=== PATIENT | female | born 2005 | race Caucasian/White ===

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

== ENCOUNTER 2024-01-07 09:34 | Outpatient (RCR) | payer OTHER, SELFPAY ==
[2024-01-07] MEDS: RHO(D) IMMUNE GLOBULIN 300 MCG/2 ML SYRINGE IM (09:48)
== END 2024-04-03 23:59 | disposition home or self-care (01) ==
LOC: ANHLAB 09:34
PROVIDERS: PCP Nurse Practitioner Family; Visit Provider Obstetrics & Gynecology
DX: O36.0190 Maternal care for anti-D [Rh] antibodies, unspecified trimester, not applicable or unspecified (principal); Z3A.00 Weeks of gestation of pregnancy not specified
CPT/HCPCS: 36415; 85461; 86850; 86900; 86901; 90384; 96372; J2790

== ENCOUNTER 2024-01-07 16:53 | Observation (INO) | payer OTHER, SELFPAY ==
[2024-01-07 17:11] VITALS: BMI 22.7
--- NOTE | 2024-01-07 17:12 | OBADM ---
This patient, Shahriar Hernandez, admitted to the OB room OB Post 117 for observation. Patient/family oriented to hospital policies and general routines including ID bracelet, bed and alarms, visiting hours, pain management, procedures, bathroom and other care routines, personal items, smoking policy, room service/diet, and visiting hours. Patient/Family are encouraged to report perceived risks to care and to ask questions if they do not understand what they are told or what they should do.
[2024-01-07 17:15] VITALS: BP 103/64; PULSE 99; RESP 18; TEMP 36.7
--- NOTE | 2024-01-07 17:40 | PC.NURSE ---
Dr. Wetzel notified of patient's arrival on unit, NST, vital signs, and abdominal pain. Orders received to give tylenol while waiting for patient to void to send urine sample.
[2024-01-07] MEDS: ACETAMINOPHEN 500 MG TABLET 1000 MG PO (17:47)
[2024-01-07 18:23] LABS: Appearance Urine Clear (Clear); Bacteria Urine 2+ /hpf; Bilirubin Urine Negative (Negative); Blood Urine 2+ (Negative); Color Urine Yellow (Yellow); Glucose Urine UA Negative (Negative); Ketones Urine Negative (Negative); Leukocyte Esterase Ur Negative LEU/UL (Negative); Nitrate Urine Negative (Negative); Non Pathogenic Casts 0-2; Protein Urine Negative (Negative); RBC Urine 21-50 /hpf (0-2); Squamous Epithelial Cell Urine Occasional /hpf (Few)
[2024-01-07 18:34] LABS: Add Urine Microscopic? YES
--- NOTE | 2024-01-10 18:16 | PM.OBTRLD ---
OB - Triage/Final Diagnosis Visit Information Reason for evaluation: other ( abdominal pain) Comments/Additional reasons for admission: I have assessed the risk for this patient, Shahriar Hernandez, and determined that she would benefit from observation care. Evaluation Laboratory results: Laboratory Tests 01/07/24 18:04 Urine Color Yellow Urine Appearance Clear Urine pH 7.0 Ur Specific [place] 1.010 Urine Protein Negative Urine Glucose (UA) Negative Urine Ketones Negative Ur Blood (Man) 2+ H Urine Nitrate Negative Urine Bilirubin Negative Urine Urobilinogen 1.0 Leukocyte Esterase Rfl Negative Urine RBC 21-50 H Urine WBC 6-10 H Ur Squamous Epith Cells Occasional Urine Bacteria 2+ H Urine Casts 0-2
== END 2024-01-07 19:39 | disposition home or self-care (01) ==
PROVIDERS: Admitting Provider Obstetrics & Gynecology; PCP Nurse Practitioner Family; Visit Provider Obstetrics & Gynecology Gynecology
DX: O26.899 Other specified pregnancy related conditions, unspecified trimester (principal); R10.9 Unspecified abdominal pain
CPT/HCPCS: 81001; 87086; 87088; 90384; 96372; A9270; G0378; G0379; J2790

== ENCOUNTER 2024-01-08 14:29 | Observation (INO) | payer OTHER, SELFPAY ==
[2024-01-08] VITALS (14 sets, daily range): BP systolic 85–121; BP diastolic 55–80; PULSE 108–124; TEMP 36.6; BMI 22.7
[2024-01-08] MEDS: LACTATED RINGERS 1,000 ML 125 ML IV CONT (15:35)
[2024-01-08] MEDS: ONDANSETRON INJ 4 MG/2 ML VIAL IV PUSH ×2 (15:35→21:44)
[2024-01-08 15:40] LABS: Basophils Absolute Auto 0.1 K/mm3 (0.0-0.1); Basophils Percent Auto 0.4 % (0.2-1.2); Hematocrit 29.8 % (37.0-47.0); Hemoglobin 10.2 g/dL (12.0-15.0); Immature Granulocyte Absolute 0.26 K/mm3 (0.00-0.031); Immature Granulocyte Percent A 1.2 % (0-0.5); Lymphocytes Absolute Auto 1.54 K/mm3 (0.9-3.2); Mean Corpuscular HGB Conc 34.2 g/dl (32-36); Mean Corpuscular Volume 93.4 fl (80-100); Mean Platelet Volume 8.6 fl (7.4-10.4); Monocytes Absolute Auto 1.5 K/mm3 (0.1-0.6); Monocytes Percent Auto 6.9 % (2.6-8.5); Neutrophils Absolute Auto 18.7 K/mm3 (1.3-6.7); Neutrophils Percent Auto 84.5 % (45.5-73.1); Platelet Count Result 290 k/mm3 (150-375); Red Blood Count 3.19 M/mm3 (4.2-5.4); Red Cell Distribution Width 12.1 % (11.5-14.5); White Blood Count 22.1 K/mm3 (4.5-10.0)
[2024-01-08 15:54] LABS: Alanine Aminotransferase 12 U/L (6-35); Alkaline Phosphatase 137 U/L (45-116); Anion Gap 11 mmol/L (4-12); Aspartate Amino Transferase 27 U/L (14-36); Bilirubin,Total 0.6 mg/dL (0.2-1.3); Blood Urea Nitrogen 6 mg/dL (8-21); Calcium 9.1 mg/dL (8.9-10.7); Carbon Dioxide 18 mmol/L (22-30); Chloride 107 mmol/L (98-107); Estimated CRCL calculation 100 ml/min; Estimated Glomerular Filt Rate > 60; Glucose 94 mg/dL (65-110); Potassium 3.5 mmol/L (3.4-5.0); Sodium 136 mmol/L (134-143)
--- NOTE | 2024-01-08 16:33 | PC.NURSE ---
1630--Reported labs and pt status to Dr. Wetzel. Rocephin order given.
[2024-01-08] MEDS: DEXTROSE 5%/LACTATED RINGERS 1,000 ML 100 ML IV CONT (20:30)
[2024-01-09 00:13] VITALS: BP 113/57; PULSE 115
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
--- NOTE | 2024-01-09 06:21 | PM.DS ---
DS: Admitting Diagnosis Discharge Date 01/09/2024 Admitting Diagnosis 2nd trimester dehydration. Urinary tract infection DS: Discharge Diagnosis Discharge Diagnosis (1) Dehydration: Code(s): E86.0 - Dehydration Status: Acute (2) Urinary tract infection: Code(s): N39.0 - Urinary tract infection, site not specified Status: Acute (3) Second trimester : Code(s): Z34.92 - Encounter for supervision of normal , unspecified, second trimester Status: Acute DS: Summary Hospital Course Reason for hospitalization: the patient was admitted on 01/08/2024 with complaints of urinary tract infection nausea vomiting. Hospital Course: He received a dose of Rocephin with white blood cell. She is weed smoker was asked to stop is to her nausea. The 624 she was able to eat was discharged on Zofranand Macrobid which she at. Time Spent with Patient Time attestation: Total time spent providing and/or coordinating discharge services: Exam Const: General: cooperative, healthy appearing and comfortable Nutritional Appearance: average body habitus Orientation/consciousness: oriented to person, oriented to place and oriented to time Resp: Effort & Inspection: normal respiratory effort Cardio: Rate: regular rate Rhythm: regular rhythm Heart sounds: S1 normal heart sound present and S2 normal heart sound present GI: Inspection: normal to inspection ( Soft gravid uterus) Auscultation: normal bowel sounds DS: Data Data Completed and Pending Labs on day of discharge: Labs from last 24 hours 01/08/24 15:21 WBC 22.1 H RBC 3.19 L Hgb 10.2 L Hct 29.8 L MCV 93.4 MCH 32.0 MCHC 34.2 RDW 12.1 Plt Count 290 MPV 8.6 Immature Gran % (Auto) 1.2 H Neut % (Auto) 84.5 H Lymph % (Auto) 7.0 L [place] % (Auto) 6.9 Eos % (Auto) 0.0 Baso % (Auto) 0.4 Lymph # (Auto) 1.54 [place] # (Auto) 1.5 H Eos # (Auto) 0.0 Baso # (Auto) 0.1 Abs Immat Gran (auto) 0.26 H Absolute Neuts (auto) 18.7 H Absolute Nucleated RBC 0.000 Nucleated RBC % 0.0 Sodium 136 Potassium 3.5 Chloride 107 Carbon Dioxide 18 L Anion Gap 11 BUN 6 L Creatinine 0.70 Estim Creat Clear Calc 100 Estimated GFR > 60 Glucose 94 Calcium 9.1 Total Bilirubin 0.6 AST 27 ALT 12 Alkaline Phosphatase 137 H Total Protein 7.0 Albumin 4.0 Discharge Plan Discharge Attending physician on discharge: Rafael Harper Discharging Clinician: Rafael Harper Patient Disposition: Home, Self-Care Activity: may shower and pelvic rest Diet: as tolerated Wound Care Instructions: follow printed instructions Patient Instructions: Antibiotic Form Stand Alone Forms: General Discharge Information Follow-up/Referrals: Rafael Harper MD [Physician] - Discharge Medications: New ondansetron 4 mg tablet,disintegrating 4 mg PO Q6H PRN (Reason: nausea and vomiting) Qty: 30 0RF Continued nitrofurantoin macrocrystal 100 mg Capsule 100 mg PO Q12H 3 Days Qty: 6 0RF Rx Instructions: must administer with a meal/food albuterol sulfate [ProAir HFA] 90 mcg/actuation HFA aerosol inhaler 1 puff INHALATION Q4H PRN Date of admission: 01/08/24 14:29 Primary Care Provider: Mitesh,Minnie Sanchez Admitting Provider: Rafael Harper Attending physician on admission: Rafael Harper Condition: Stable
[2024-01-09 06:45] VITALS: BP 105/64; PULSE 120
[2024-01-09 07:01] VITALS: BP 105/64; PULSE 120
== END 2024-01-09 07:05 | disposition home or self-care (01) ==
PROVIDERS: Admitting Provider Obstetrics & Gynecology; PCP Nurse Practitioner Family; Visit Provider Obstetrics & Gynecology
DX: O23.43 Unspecified infection of urinary tract in pregnancy, third trimester (principal); N39.0 Urinary tract infection, site not specified; O99.283 Endocrine, nutritional and metabolic diseases complicating pregnancy, third trimester; E86.0 Dehydration; Z79.51 Long term (current) use of inhaled steroids; Z3A.32 32 weeks gestation of pregnancy
CPT/HCPCS: 36415; 59025; 80053; 85025; 96374; 96375; 96376; G0378; G0379; J0696; J2405; J7120; J7121

== ENCOUNTER 2024-02-24 08:50 | Inpatient (IN) | payer OTHER, SELFPAY ==
[2024-02-24] VITALS (219 sets, daily range): BP systolic 62–142; BP diastolic 35–116; PULSE 25–207; TEMP 37–37.8; O2SAT 83–100; BMI 23.1
--- NOTE | 2024-02-24 08:50 | LDADM ---
This patient, Shahriar Hernandez, was admitted to Labor/Delivery/Recovery 105 on 02/24/24 at 08:50. Plans for labor, pain management and were discussed with patient. Patient/family oriented to hospital policies and general routines including ID bracelet, bed and alarms, visiting hours, pain management, procedures, bathroom and other care routines, personal items, smoking policy, room service/diet and guest tray routines, infant security routines, and visiting hours. Patient/Family are encouraged to report perceived risks to care and to ask questions if they do not understand what they are told or what they should do. See OBIX for further documentation.
[2024-02-24 10:42] LABS: Basophils Percent Auto 0.3 % (0.2-1.2); Eosinophils Absolute Auto 0.1 K/mm3 (0-0.3); Eosinophils Percent Auto 0.9 % (0-4.4); Hematocrit 31.8 % (37.0-47.0); Hemoglobin 10.7 g/dL (12.0-15.0); Immature Granulocyte Percent A 1.3 % (0-0.5); Lymphocytes Percent Auto 12.3 % (18.3-44.2); Mean Corpuscular HGB Conc 33.6 g/dl (32-36); Mean Corpuscular Hemoglobin 29.2 pg (26-34); Mean Corpuscular Volume 86.6 fl (80-100); Mean Platelet Volume 8.9 fl (7.4-10.4); Monocytes Absolute Auto 0.8 K/mm3 (0.1-0.6); Monocytes Percent Auto 4.9 % (2.6-8.5); Neutrophils Absolute Auto 12.4 K/mm3 (1.3-6.7); Neutrophils Percent Auto 80.3 % (45.5-73.1); Platelet Count Result 368 k/mm3 (150-375); Red Blood Count 3.67 M/mm3 (4.2-5.4); Red Cell Distribution Width 13.7 % (11.5-14.5); White Blood Count 15.4 K/mm3 (4.5-10.0)
--- NOTE | 2024-02-24 12:41 | PM.IMHP ---
H&P: HPI History of Present Illness Date/Time: 02/24/24 12:41 Chief Complaint: Rachel luna Narrative: 18 y/o G1 at 38 6/7 weeks who phoned this morning after a gush of clear fluid at 0700. I asked her to come in. RomPlus positive here. She is now feeling occasional contractions. GBS neg. Review of Systems Review of Systems: All systems reviewed & are unremarkable except as noted in HPI and below PMFSH Past Medical History Medical History Anxiety Asthma Eczema Surgical History Surgical History H/O wrist surgery Bilateral tendon removal Family History Family History Mother Endometriosis Father Diabetes mellitus Asthma Ayfjy-[id number]-qmghuwymwai deficiency High cholesterol Sibling Asthma Sibling No problems noted. Grandparent Heart attack Social History Social History Smoking status: Never smoker Alcohol intake: never Substance use: never Do You Feel Safe in your Home?: Yes Lack of Transportation: No Lack of Food: Never True Current Housing: I Have Housing Concerned About Future Housing: No Difficulty Paying Gas/Electric Bills: No Difficulty Paying for Meds: No Currently Unemployed: No Education: High School Diploma/GED Difficulty w/ Childcare or Family Care: No Living arrangements: with family Occupation/Education: occupation Gender identity (if verbalized by the patient): Female Sexual Orientation (if Verbalized by the Patient): Straight or Heterosexual Spiritual care concerns: No Meds Home Medications and Allergies Home Medications Medication Instructions Recorded Confirmed Type albuterol sulfate 90 mcg/actuation 1 puff inhalation Q4H PRN asthma 01/09/20 02/24/24 History aerosol inhaler (ProAir HFA) vits no.126-ferrous fum 1 tablet PO DAILY 02/24/24 02/24/24 History 28 mg iron-folic acid 800 mcg tablet (Classic ) Allergies Allergy/AdvReac Type Severity Reaction Status Date / Time latex Allergy Mild rash Verified 03/30/23 10:27 Sulfa (Sulfonamide Allergy Mild rash Verified 03/30/23 10:27 Antibiotics) Vital Signs Vital Signs - 24 hr 02/24/24 11:00 02/24/24 12:26 02/24/24 12:31 Pulse Oximetry 98 99 Oxygen Delivery Room Air 02/24/24 12:36 Pulse Oximetry 99 Oxygen Delivery Exam Const: Orientation/consciousness: patient oriented x3 Other: Well-developed, well-nourished female in no acute distress. Neck: Thyroid: thyroid normal Lymphatic: no lymphadenopathy noted (in neck, axilla or inguinal nodes) Resp: Effort & Inspection: normal respiratory effort Auscultation: clear to auscultation bilaterally Cardio: Rate: regular rate Rhythm: regular rhythm Heart sounds: S1 normal heart sound present and S2 normal heart sound present GI: Other: ABD: Soft, nontender, nondistended, gravid. NST reactive. Contrations irregular. No guarding or rebound tenderness. No hepatosplenomegaly. : General: Yes no CVA tenderness Other: Cervix 2/50/-2. Vertex. AROM of forebag. IUPC placed. Back/Spine/Pelvis: Back: no CVA tenderness Skin: General skin exam: normal color and no rashes or lesions noted Neuro: General: patient oriented x3 Extrem: Other: Extremities: nontender with no edema Psych: Mental Status: mental status grossly normal Affect: normal affect H&P: Results Labs Labs: Short CBC 02/24/24 Range/Units 10:36 WBC 15.4 H (4.5-10.0) K/mm3 Hgb 10.7 L (12.0-15.0) g/dL Hct 31.8 L (37.0-47.0) % Plt Count 368 (150-375) k/mm3 Assessment and Plan Assessment and plan (1) SROM (spontaneous rupture of membranes): Status: Acute Assessment and Plan: A: IUP at 38 6/7 weeks with SROM. P: Augm
[2024-02-24] MEDS: LACTATED RINGERS 1,000 ML 125 ML IV CONT ×3 (13:10→23:43)
--- NOTE | 2024-02-24 13:28 | WPDANESEPP ---
Anes - Eval Pre Procedure Procedure: Labor Epidural Date/Time: 02/24/24 13:28 Surgeon: Essie Preop Diagnosis: Labor Pain Pre Op Diagnosis: Leaking/Ruptured Patient Data Age: 18 Gender: F Height: 1.65 m Weight: 63 kg Last Vital Signs Pulse 84 02/24/24 13:15 BP 126/82 02/24/24 13:15 Pulse Ox 100 02/24/24 13:26 O2 Del Method Room Air 02/24/24 11:00 Allergies Allergy/AdvReac Type Severity Reaction Status Date / Time latex Allergy Mild rash Verified 03/30/23 10:27 Sulfa (Sulfonamide Allergy Mild rash Verified 03/30/23 10:27 Antibiotics) Home Medications Medication Instructions Recorded Confirmed Type albuterol sulfate 90 mcg/actuation 1 puff inhalation Q4H PRN asthma 01/09/20 02/24/24 History aerosol inhaler (ProAir HFA) vits no.126-ferrous fum 1 tablet PO DAILY 02/24/24 02/24/24 History 28 mg iron-folic acid 800 mcg tablet (Classic ) Laboratory Tests 02/24/24 10:36 WBC 15.4 H K/mm3 (4.5-10.0) RBC 3.67 L M/mm3 (4.2-5.4) Hgb 10.7 L g/dL (12.0-15.0) Hct 31.8 L % (37.0-47.0) MCV 86.6 fl (80-100) MCH 29.2 pg (26-34) MCHC 33.6 g/dl (32-36) RDW 13.7 % (11.5-14.5) Plt Count 368 k/mm3 (150-375) MPV 8.9 fl (7.4-10.4) Immature Gran % (Auto) 1.3 H % (0-0.5) Neut % (Auto) 80.3 H % (45.5-73.1) Lymph % (Auto) 12.3 L % (18.3-44.2) [place] % (Auto) 4.9 % (2.6-8.5) Eos % (Auto) 0.9 % (0-4.4) Baso % (Auto) 0.3 % (0.2-1.2) Lymph # (Auto) 1.90 K/mm3 (0.9-3.2) [place] # (Auto) 0.8 H K/mm3 (0.1-0.6) Eos # (Auto) 0.1 K/mm3 (0-0.3) Baso # (Auto) 0.0 K/mm3 (0.0-0.1) Abs Immat Gran (auto) 0.20 H K/mm3 (0.00-0.031) Absolute Neuts (auto) 12.4 H K/mm3 (1.3-6.7) Absolute Nucleated RBC 0.000 K/mm3 (0.0-0.012) Nucleated RBC % 0.0 % (0.0-0.2) RPR Pending HIV 1&2 Ab/P24 Ag 4thGn Pending Blood Type O Negative Antibody Screen Positive Antibody Identification Pending Antigen Identification Pending TONY, IgG Interpret Pending TONY, Poly Interpret Pending TONY, Complement Interp Pending : gestational age (PAT 03/03/24, ) Patient hx anesthesia problems: none Family hx anesthesia problems: none Results Review: All pre-operative results and documents have been reviewed as part of the pre-operative evaluation. [facility] Past Medical History Medical History Anxiety Asthma Eczema Surgical History Surgical History H/O wrist surgery Bilateral tendon removal Family History Family History Mother Endometriosis Father Diabetes mellitus Asthma Yzpas-[id number]-wicrggyorpa deficiency High cholesterol Sibling Asthma Sibling No problems noted. Grandparent Heart attack Social History Social History Smoking status: Never smoker Alcohol intake: never Substance use: never Do You Feel Safe in your Home?: Yes Lack of Transportation: No Lack of Food: Never True Current Housing: I Have Housing Concerned About Future Housing: No Difficulty Paying Gas/Electric Bills: No Difficulty Paying for Meds: No Currently Unemployed: No Education: High School Diploma/GED Difficulty w/ Childcare or Family Care: No Living arrangements: with family Occupation/Education: occupation Gender identity (if verbalized by the patient): Female Sexual Orientation (if Verbalized by the Patient): Straight or Heterosexual Spiritual care concerns: No Exam Day of Procedure 02/24/24 13:28
[2024-02-24 13:36] LABS: HIV 1/2 Ab P24 Ag Result Negative (Negative)
[2024-02-24] MEDS: OXYTOCIN 30 UNITS/NS 500 ML 30 UNITS/500 ML BAG IV CONT (14:55)
[2024-02-24 15:37] LABS: Rapid Plasma Reagin Non-Reactive (NonReactive)
--- NOTE | 2024-02-24 17:14 | PM.OBPNLAB ---
Pain Control Date/time seen: 02/24/24 17:14 Comments: Comfortable with epidural. Pelvic Exam Dilation (cm): 3 Effacement (%): 90 station: -2 Contractions Contraction frequency: 2 Contraction pattern: Irregular Status status: Category l Assessment and Plan Pitocin rate (mU/min): 6 Comments: Continue labor augmentation. Dr. Wetzel is covering for the weekend. I have communicated with her and she is aware.
[2024-02-25] VITALS (99 sets, daily range): BP systolic 101–158; BP diastolic 53–103; PULSE 30–184; RESP 16–22; TEMP 36.6–38.8; O2SAT 72–100
[2024-02-25] MEDS: METHYLERGONOVINE MALEATE 0.2 MG/ML VIAL IM (00:45)
[2024-02-25] MEDS: miSOPROStol 200 MCG TABLET 1000 MCG (00:54)
--- NOTE | 2024-02-25 01:01 | PM.OBPRVD ---
OB - Vaginal Delivery Note Procedure Delivery date: 02/25/24 Induction method: None Delivery augmentation: Pitocin Delivery monitor: External FHT and Internal Uterine Route of delivery: Episiotomy description: None Laceration Description: Perineal - 3rd Degree Delivery repair: vicryl (0 vicryl for sphincter and 3-0 for vaginal laceration) Specimen: No Quantitative Blood Loss (ml): 800 Anesthesia type: Local Disposition: Floor Complications: Other complications (pp hemorrhage secondary to atony) Narrative: Uterus explored with no products noted. Massage and Pitocin throughout. Given Methergine with some response and cytotec resolved atony. Baby Date of : 02/25/24 Gestational Age by Date: 38 Infant gender: Female presentation: vertex position: Left Occiput Anterior Placenta delivery description: Spontaneous Cord Vessel Description: 3 Vessels, Nuchal Cord (reduced) and Delayed Cord Clamping score one minute: 8 score five minutes: 9
[2024-02-25] MEDS: OXYTOCIN 30 UNITS/NS 500 ML 30 UNITS/500 ML BAG 125 UNITS IV CONT (01:04)
--- NOTE | 2024-02-25 01:04 | PM.OBDSVD ---
DS: Admitting Diagnosis Discharge Date 02/27/2024 <Rafael Morales MD - Last Filed: 02/27/24 06:34> Admitting Diagnosis IUP 38 wks with SROM <Cate Wetzel MD - Last Filed: 02/27/24 09:30> DS: Discharge Diagnosis Discharge Diagnosis (1) (normal spontaneous vaginal delivery): Code(s): O80 - Encounter for full-term uncomplicated delivery <Cate Wetzel MD - Last Filed: 02/27/24 09:30> Status: Acute <Cate Wetzel MD - Last Filed: 02/27/24 09:30> (2) hemorrhage: Code(s): O72.1 - Other immediate hemorrhage <Cate Wetzel MD - Last Filed: 02/27/24 09:30> Status: Acute <Cate Wetzel MD - Last Filed: 02/27/24 09:30> (3) Third degree laceration of perineum during delivery, : Code(s): O70.20 - Third degree perineal laceration during delivery, unspecified <Cate Wetzel MD - Last Filed: 02/27/24 09:30> Status: Acute <Cate Wetzel MD - Last Filed: 02/27/24 09:30> OB - DS: Summary Hospital Course Hospital Course: Patient underwent spontaneous vaginal delivery the 3rd degree tear as well as hemorrhage. She received 2 doses of blood. Her hemoglobin was stable upon discharge. She remained afebrile. She was up, voiding without difficulty, eating where diet, ambulating, generally without complaints. <Cate Wetzel MD - Last Filed: 02/27/24 09:30> OB Procedures : None <Rafael Morales MD - Last Filed: 02/27/24 06:34> OB Procedures Intrapartum: Spontaneous Vag Delivery <Rafael Morales MD - Last Filed: 02/27/24 06:34> OB Procedures: : Transfusion <Rafael Morales MD - Last Filed: 02/27/24 06:34> Peripartum Data Laceration Description: Perineal - 3rd Degree <Cate Wetzel MD - Last Filed: 02/27/24 09:30> Episiotomy description: None <Cate Wetzel MD - Last Filed: 02/27/24 09:30> Time Spent with Patient Time attestation: Total time spent providing and/or coordinating discharge services: <Cate Wetzel MD - Last Filed: 02/27/24 09:30> DS: Data Data Completed and Pending Labs on day of discharge: Labs from last 24 hours 02/24/24 10:36 WBC 15.4 H RBC 3.67 L Hgb 10.7 L Hct 31.8 L MCV 86.6 MCH 29.2 MCHC 33.6 RDW 13.7 Plt Count 368 MPV 8.9 Immature Gran % (Auto) 1.3 H Neut % (Auto) 80.3 H Lymph % (Auto) 12.3 L [place] % (Auto) 4.9 Eos % (Auto) 0.9 Baso % (Auto) 0.3 Lymph # (Auto) 1.90 [place] # (Auto) 0.8 H Eos # (Auto) 0.1 Baso # (Auto) 0.0 Abs Immat Gran (auto) 0.20 H Absolute Neuts (auto) 12.4 H Absolute Nucleated RBC 0.000 Nucleated RBC % 0.0 RPR Non-reactive HIV 1&2 Ab/P24 Ag 4thGn Negative Blood Type O Negative Antibody Screen Positive Antibody Identification Passive Due to RH Imm Glob Antigen Identification Cancelled TONY, IgG Interpret Neg TONY, Poly Interpret Not Performed TONY, Complement Interp Negative <Cate Wetzel MD - Last Filed: 02/27/24 09:30> Discharge Plan Discharge Attending physician on discharge: Rafael Harper <Cate Wetzel MD - Last Filed: 02/27/24 09:30> Rafael Harper <Rafael Morales MD - Last Filed: 02/27/24 06:34> Discharging Clinician: Cate Wetzel <Cate Wetzel MD - Last Filed: 02/27/24 09:30> Cate Wetzel <Rafael Morales MD - Last Filed: 02/27/24 06:34> Anticipated Discharge Date/Time: 02/26/24 17:00 <Cate Wetzel MD - Last Filed: 02/27/24 09:30> Patient Disposition: Home, Self-Care <Cate Wetzel MD - Last Filed: 02/27/24 09:30> Activity: may shower and pelvic rest <Cate Wetzel MD - Last Filed: 02/27/24 09:30> may shower and pelvic rest <Rafael Morales MD - Last Filed: 02/27/24 06:34
[2024-02-25] MEDS: ALBUTEROL SULFATE NEB 2.5 MG/3 ML INH 1.25 MG INHALATION (01:55)
[2024-02-25 02:05] LABS: Hematocrit 24.6 % (37.0-47.0); Hemoglobin 8.2 g/dL (12.0-15.0)
[2024-02-25] MEDS: ONDANSETRON INJ 4 MG/2 ML VIAL IV PUSH (03:15)
[2024-02-25] MEDS: IBUPROFEN 600 MG TABLET PO ×3 (03:54→23:12)
[2024-02-25] MEDS: ACETAMINOPHEN 500 MG TABLET 1000 MG PO (03:55)
[2024-02-25] MEDS: WITCH HAZEL 40 PADS 1 PAD TOPICAL (05:13)
[2024-02-25] MEDS: BENZOCAINE 20% AER SPR (*SP) 56 GM CAN 1 SPRAY TOPICAL (05:13)
--- NOTE | 2024-02-25 05:36 | OBPPTRN ---
Patient transferred to post room #286 via wheelchair @ [phone]. Support person present. Oriented to unit, room, information board, rooming in, admission packet and security measures. Patient verbalizes understanding.
--- NOTE | 2024-02-25 09:13 | P.PNOB_ITS ---
OB - PN: Subj Subjective Date/time seen: 02/25/24 09:13 Interval history: Feeling much better after 1st unit of blood. Patient comments: pain well controlled OB - PN: Obj Data Labs 02/25/24 01:58 Labs: Laboratory Results - last 24 hr 02/24/24 02/24/24 02/25/24 10:36 10:36 01:58 WBC 15.4 H RBC 3.67 L Hgb 10.7 L 8.2 L Hct 31.8 L 24.6 L MCV 86.6 MCH 29.2 MCHC 33.6 RDW 13.7 Plt Count 368 MPV 8.9 Immature Gran % (Auto) 1.3 H Neut % (Auto) 80.3 H Lymph % (Auto) 12.3 L [place] % (Auto) 4.9 Eos % (Auto) 0.9 Baso % (Auto) 0.3 Lymph # (Auto) 1.90 [place] # (Auto) 0.8 H Eos # (Auto) 0.1 Baso # (Auto) 0.0 Abs Immat Gran (auto) 0.20 H Absolute Neuts (auto) 12.4 H Absolute Nucleated RBC 0.000 Nucleated RBC % 0.0 RPR Non-reactive HIV 1&2 Ab/P24 Ag 4thGn Negative Blood Type O Negative Antibody Screen Positive Antibody Identification Passive Due to RH Imm Glob Antigen Identification Cancelled TONY, IgG Interpret Neg TONY, Poly Interpret Not Performed TONY, Complement Interp Negative Crossmatch See Detail See Detail OB - PN A/P Assessment and Plan (1) hemorrhage: Code(s): O72.1 - Other immediate hemorrhage Status: Acute Assessment and Plan: vss bleeding stable second unit blood in progress h/h in am Plan day: 0 Time Spent With Patient Time: Total time spent is greater than 50% in coordination of care (as documented) at patient's floor/unit and/or counseling patient: Exam : Bimanual exam- vagina & uterus: other (Uterus firm, nt @U)
[2024-02-25] MEDS: POLYSACCHARIDE IRON COMPLEX 150 MG CAPSULE PO ×2 (09:47→17:10)
[2024-02-25] MEDS: DOCUSATE SODIUM 100 MG CAPSULE PO ×2 (09:47→17:10)
[2024-02-25] MEDS: MULTIVIT/MIN/PREN/FOL AC/IRON TABLET 1 TAB PO (09:47)
--- NOTE | 2024-02-25 09:52 | WPDANLDPN2 ---
Anes-Prog Note L&D Date/Time: 02/25/24 09:52 Comfortable throughout: labor and delivery Neuraxial method: epidural Epidural/Spinal procedure site: clean & non-tender Neuro status: Neuro function grossly intact. Cardiovascular status: normal Respiratory status: normal Airway patency: baseline Mental status: baseline Post-Op hydration status: normal Vital Signs: Last Vital Signs Temp 37.2 C 02/25/24 09:44 Pulse 95 02/25/24 09:44 Resp 16 02/25/24 09:44 BP 106/55 L 02/25/24 09:44 Pulse Ox 97 02/25/24 09:44 O2 Del Method Room Air 02/24/24 11:00 Pain score (VAS): 0 I/O: Intake & Output 02/24/24 02/25/24 02/25/24 23:59 07:59 15:59 Intake Total 1000 322 0 Output Total 920 Balance 1000 -598 0 Post-procedural complaints: none Patient feedback: Patient satisfied with anesthetic care.
--- NOTE | 2024-02-25 10:20 | PC.NURSE ---
Mother was attempting to put to breast when RN entered. was eager and opening wide but did not have a good latch. We repositioned a little in cradle hold on the right breast. Mother found a comfortable hold on her breast and we latched baby when she opened wide. Baby suckled well for a few minutes, and then unlatched and mother was able to relatch her independently. Baby is vigorous with brief pauses and intermittent swallows. Mother denies nipple discomfort. Encouraged mother to call for further assistance as needed throughout the day and to feed again in 2-3 hours or when she sees feeding cues. Mother agrees. Reported to primary RN.
--- NOTE | 2024-02-25 16:05 | PC.NURSE ---
Called to room to assist with . is sleepy at breast. She is able to be roused when you pull her away from mom but when she gets to the breast and latches, she will suck once or twice and then hold the nipple in her mouth. We tried several times to unlatch and start over, but baby would do the same thing. It has been four hours since the last feed so mother is instructed to place baby back under the bili lights and try again if she sees any feeding cues, or in half an hour. Mother will call for assistance as needed. Reported to Primary RN.
[2024-02-25] MEDS: ACETAMINOPHEN 325 MG TABLET 650 MG PO (17:10)
[2024-02-26] VITALS: BP 105/61; PULSE 98; RESP 16; RESP 18; TEMP 37.1; O2SAT 100
[2024-02-26] MEDS: ACETAMINOPHEN 325 MG TABLET 650 MG PO ×4 (01:00→20:44)
[2024-02-26 05:43] LABS: Hematocrit 25.6 % (37.0-47.0); Hemoglobin 8.4 g/dL (12.0-15.0)
[2024-02-26 07:10] VITALS: BP 100/62; PULSE 91; RESP 16; TEMP 36.4; O2SAT 99
[2024-02-26] MEDS: POLYSACCHARIDE IRON COMPLEX 150 MG CAPSULE PO ×2 (08:12→18:38)
[2024-02-26] MEDS: DOCUSATE SODIUM 100 MG CAPSULE PO ×2 (08:12→18:38)
[2024-02-26] MEDS: MULTIVIT/MIN/PREN/FOL AC/IRON TABLET 1 TAB PO (08:12)
--- NOTE | 2024-02-26 09:23 | PM.OBPNVD ---
OB - PN: Subj Subjective Date/time seen: 02/26/24 09:23 Interval history: Patient comments: no complaints and pain well controlled baby status: doing well and nursing well OB - PN: Obj Data Labs 02/26/24 05:13 Labs: Laboratory Results - last 24 hr 02/24/24 02/26/24 10:36 05:13 Hgb 8.4 L Hct 25.6 L Blood Type O Negative Antibody Screen Positive Antibody Identification TNP Antigen Identification TNP TONY, IgG Interpret TNP TONY, Poly Interpret TNP TONY, Complement Interp TNP Baby's Blood Type O pos Baby's TONY Positive Crossmatch See Detail OB - PN A/P Plan day: 1 Plan: routine care and other Comments: afebrile x 24 hours will observe until ppd 2 feeling better post 2 units PRBC Time Spent With Patient Time: Total time spent is greater than 50% in coordination of care (as documented) at patient's floor/unit and/or counseling patient: Exam : Bimanual exam- vagina & uterus: other (Uterus firm, nt @U)
--- NOTE | 2024-02-26 10:20 | PC.NURSE ---
Breast pump provided due to maternal request. Instructions given on cleaning, care, usage, that there should be no pain, pumping schedule for milk production, collection, and storage of human milk. Patient was assessed for correct placement, flange size, to pump for comfort and nipple stretching/stimulation for adequate milk production every 3 hours (8 times in 24 hours) 1-2 times at night.
--- NOTE | 2024-02-26 10:38 | WPDANLDPN2 ---
Anes-Prog Note L&D Date/Time: 02/26/24 10:38 Comfortable throughout: labor and delivery Neuraxial method: epidural Epidural/Spinal procedure site: tender Neuro status: Neuro function grossly intact. Cardiovascular status: normal Respiratory status: normal Airway patency: baseline Mental status: baseline Post-Op hydration status: normal Vital Signs: Last Vital Signs Temp 37.1 C 02/26/24 00:00 Pulse 98 02/26/24 00:00 Resp 16 02/26/24 00:00 BP 105/61 02/26/24 00:00 Pulse Ox 100 02/26/24 00:00 O2 Del Method Room Air 02/26/24 00:00 Pain score (VAS): 4/10 I/O: Intake & Output 02/25/24 02/26/24 02/26/24 23:59 07:59 15:59 Intake Total 140 Balance 140 Post-procedural complaints: none Patient feedback: Patient satisfied with anesthetic care.
[2024-02-26] MEDS: RHO(D) IMMUNE GLOBULIN 300 MCG/2 ML SYRINGE IM (13:23)
[2024-02-26 18:59] VITALS: BP 119/78; PULSE 97; RESP 20; TEMP 36.6; O2SAT 100
--- NOTE | 2024-02-27 06:34 | PM.OBPNVD ---
OB - PN: Subj Subjective Date/time seen: 02/27/24 06:34 Interval history: Patient comments: no complaints and pain well controlled baby status: doing well and nursing well OB - PN: Obj Data Labs 02/26/24 05:13 Labs: Laboratory Results - last 24 hr 02/26/24 05:13 Blood Type O Negative Antibody Screen Positive Antibody Identification TNP Antigen Identification TNP TONY, IgG Interpret TNP TONY, Poly Interpret TNP TONY, Complement Interp TNP Screen Negative Baby's Blood Type O pos Baby's TONY Positive Doses of RhIg Required 1 OB - PN A/P Plan day: 2 Plan: routine care, discharge home and follow up 6 weeks Time Spent With Patient Time: Total time spent is greater than 50% in coordination of care (as documented) at patient's floor/unit and/or counseling patient: Time with patient: less than 15 minutes Exam Const: General: cooperative, healthy appearing and comfortable Nutritional Appearance: average body habitus Orientation/consciousness: oriented to person, oriented to place and oriented to time Resp: Effort & Inspection: normal respiratory effort Cardio: Rate: regular rate Rhythm: regular rhythm Heart sounds: S1 normal heart sound present and S2 normal heart sound present GI: Inspection: normal to inspection
[2024-02-27 08:05] VITALS: BP 127/82; PULSE 87; RESP 16; TEMP 37.4; O2SAT 100
[2024-02-27] MEDS: MULTIVIT/MIN/PREN/FOL AC/IRON TABLET 1 TAB PO (09:28)
[2024-02-27] MEDS: DOCUSATE SODIUM 100 MG CAPSULE PO (09:28)
[2024-02-27] MEDS: ACETAMINOPHEN 325 MG TABLET 650 MG PO (09:30)
[2024-02-27] MEDS: POLYSACCHARIDE IRON COMPLEX 150 MG CAPSULE PO (09:30)
--- NOTE | 2024-02-27 10:20 | PC.NURSE ---
Consulted with mother concerning needs and she shared her ability to independently latch infant optimally without pain. Mother says she is pumping and supplementing with breastmilk and formula. She still puts baby to breast sometimes. She has a pump at home. Advised continuing with this feeding plan until she sees her last remodeler repairer. Mother is feeding appropriately for growth of and understands stimulating infant to eat if needed. Infant has had appropriate feedings in the last 24 hours meets the outcomes for weight, output, blood sugar and jaundice at this time. Reinforced understanding of milk production, transition of milk, signs of adequate intake, transition of stool, prevention/relief of engorgement, community resources, and when to call a provider using the resource of the feeding sheet along with the mom and baby guide. Mother voiced understanding of the information shared, is confident to continue effectively her at home, when to call for assistance, denies any additional assistance or education at this time. Reported to the Primary RN.
--- NOTE | 2024-02-27 13:11 | PCCCNOTE ---
Met with pt. and father of baby/gonzalo Ty. This is their first child. They live together at home. They have family support including family and friends. Pt. reports she has all necessary supplies at home including a breast pump, crib, clothing, etc. Offered resources to pt. and she reports she did not need but will take for information only. Offered basket and they passed. Pt. will discharge home today. Denies any other needs.
[2024-02-28 14:26] VITALS: BP 120/82; PULSE 80; RESP 20; TEMP 37.2; O2SAT 100
== END 2024-02-27 11:02 | disposition home or self-care (01) | DRG 542 ==
LOC: ANHLDR 02-25 01:06 → ANHOB2 02-25 05:57
PROVIDERS: Obstetrics & Gynecology Gynecology; Admitting Provider Obstetrics & Gynecology; PCP Nurse Practitioner Family; Visit Provider Obstetrics & Gynecology
DX: O69.81X0 Labor and delivery complicated by cord around neck, without compression, not applicable or unspecified (principal); Z37.0 Single live birth; Z3A.39 39 weeks gestation of pregnancy; O70.20 Third degree perineal laceration during delivery, unspecified; O72.1 Other immediate postpartum hemorrhage
CPT/HCPCS: 36415; 36430; 85014; 85018; 85025; 85461; 86592; 86703; 86850; 86880; 86900; 86901; 86902; 86920; 90384; 94640; A9270; G0432; J2210; J2405; J2590; J2790; J2795; J7120; P9016

== ENCOUNTER 2024-12-19 10:30 | Outpatient (RCR) | payer OTHER, SELFPAY ==
[2024-12-19] MEDS: RHO(D) IMMUNE GLOBULIN 300 MCG/2 ML SYRINGE IM (14:00)
== END 2025-03-19 23:59 | disposition home or self-care (01) ==
LOC: ANHLAB 10:30
PROVIDERS: Visit Provider Obstetrics & Gynecology
DX: Z29.13 Encounter for prophylactic Rho(D) immune globulin (principal); O36.0190 Maternal care for anti-D [Rh] antibodies, unspecified trimester, not applicable or unspecified; Z3A.00 Weeks of gestation of pregnancy not specified
CPT/HCPCS: 36415; 85461; 86850; 86900; 86901; 90384; 96372; J2790

== ENCOUNTER 2025-01-30 11:36 | Observation (INO) | payer OTHER, SELFPAY ==
[2025-01-30] VITALS (100 sets, daily range): BP systolic 103–116; BP diastolic 53–66; PULSE 25–162; RESP 16; TEMP 37–37.4; O2SAT 91–100; BMI 24.0
--- OUTSIDE RECORDS SUMMARY | 2025-01-30 12:04 | XMS_ITS | Clinical Summary ---
Author Organization [facility] Address [address] [place] [address] Phone Care Team Providers Care Regrinder Operator Name Role Phone Minnie Sagastume BRANDIE OROPEZA Primary Care Provider [phone] Allergies No known active allergies Medications ketorolac (TORADOL) 10 MG Tablet Take 1 Tablet by mouth every 6 hours as needed for Moderate or more severe pain. 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 User may not have seen previous data. Pulse 84 02/22/2023 11:33 PM CDT Temperature 36.4 C (97.6 F) 02/22/2023 11:33 PM CDT Respiratory Rate 16 02/22/2023 11:3 3 PM CDT Oxygen Saturation 99% 02/22/2023 11: 30 PM CDT Inhaled Oxygen Concentration - - Weight 56.7 kg (125 lb) 02/22/2023 11:3 3 PM CDT Height 162.6 cm (5' 4) 02/22/2023 11:3 3 PM CDT Body Mass Index 21.46 02/22/2023 11:33 PM CDT Plan of Treatment Health Maintenance Due Date Last Done Comments Hepatitis C Virus (HCV) Screening 2004 Meningococcal B Immunization (1 of 2 - Standard) 2020 SARS-COV-2 Immunization ( - 2023- season) 2024 Influenza Immunization (#1) 2025 03/0 03/2022, 05/08/2020, 05/19/2018, Additional history exists Respiratory Syncytial Virus (RSV) Immunization (Adult) (1 - 1-dose 75+ series) 2079 Hepatitis B Immunization Completed 005, 2004, 2004, Additional history exists Pneumococcal Immunization Combined Aged Out 2005, 2004, 2004, Additional history exists No longer eligible based on patient's age to complete this topic Hepatitis A Immunization Discontinued 007, 03/31/2007, 2006, Additional history exists Varicella Immunization Discontinued 11/17/2007, 2005 Measles Mumps Rubella (MMR) Immunization Discontinued 05/30/2009, 2005 Polio (IPV) Immunization Discontinued 009, 2004, 2004, Additional history exists DTaP/Tdap/Td Immunization Discontinued 2015, 05/30/2009, 10/15/2005, Additional history exists TdaP Immunization Completed 12/11/2015 Human Papillomavirus (HPV) Immunization Completed 06/22/2016, 02/20/2016, 12/11/2015 Meningococcal Immunization (ACWY) Completed 01/01/2021, 12/11/2015 Rotavirus Immunization Aged Out No lo nger eligible based on patient's age to complete this topic Insurance MEDICAID [place] Care Teams Regrinder Operator Relationship Specialty Start Date End Date Sagastume, SANDIP Hartman, BRANDIE [address] [place] [address] PCP - General Family Medicine 02/22/23
--- NOTE | 2025-01-30 12:19 | OBADM ---
This patient, Shahriar Hernandez, admitted to the OB room 116 for observation. Patient/family oriented to hospital policies and general routines including ID bracelet, bed and alarms, visiting hours, pain management, procedures, bathroom and other care routines, personal items, smoking policy, room service/diet, and visiting hours. Patient/Family are encouraged to report perceived risks to care and to ask questions if they do not understand what they are told or what they should do.
[2025-01-30 13:23] LABS: OBXCEM ROM Plus Negative (Negative)
[2025-01-30 13:33] LABS: Add Urine Microscopic? NO; Appearance Urine Clear (Clear); Glucose Urine UA Negative (Negative); Leukocyte Esterase Ur Negative LEU/UL (Negative); Nitrate Urine Negative (Negative); Specific Grav Ur 1.009 (1.001-1.035)
[2025-01-30] MEDS: TERBUTALINE SULFATE 1 MG/ML VIAL 0.25 MG SUB-Q (14:47)
[2025-01-30] MEDS: ACETAMINOPHEN 500 MG TABLET 1000 MG PO (17:04)
[2025-01-30 19:00] LABS: Hematocrit 28.6 % (37.0-47.0); Hemoglobin 9.0 g/dL (12.0-15.0); Immature Granulocyte Percent A 1.9 % (0-0.5); Lymphocytes Absolute Auto 1.97 K/mm3 (0.9-3.2); Mean Corpuscular HGB Conc 31.5 g/dl (32-36); Mean Corpuscular Hemoglobin 27.4 pg (26-34); Mean Corpuscular Volume 87.2 fl (80-100); Nucleated Red Blood Cells Absolute Auto 0.000 K/mm3 (0.0-0.012); Nucleated Red Blood Cells Perc 0.0 % (0.0-0.2); Platelet Count Result 274 k/mm3 (150-375); Red Blood Count 3.28 M/mm3 (4.2-5.4); White Blood Count 15.5 K/mm3 (4.5-10.0)
[2025-01-30] MEDS: BETAMETHASONE SOD PHOS/ACETATE 30 MG/5 ML VIAL 12 MG IM (19:04)
--- NOTE | 2025-01-30 19:15 | PC.NURSE ---
184- phoned in for patient update, RN notified MD that patient's uterus is very irritable still, and that this RN sat at bedside for 5 minutes and palpated the patient's abdomen and noted no contractions per palpation, but a lot of movement during that time. RN also notified MD of FHT tracing that is reactive with moderate variability with accelerations. MD gave orders to just monitor with toco and to give the patient another 10mg of Procardia. MD also gave orders to give the patient steriods, draw a CBC to verify blood counts due to patient's medical history of anemia, and then to d/c the patient with procardia 10mg Q4 hours as needed.
--- NOTE | 2025-01-31 07:29 | PM.OBTRLD ---
OB - Triage/Final Diagnosis Visit Information Date of evaluation: 01/30/25 Reason for evaluation: threatened labor Comments/Additional reasons for admission: I have assessed the risk for this patient, Shahriar Hernandez, and determined that she would benefit from observation care. Evaluation Laboratory results: Laboratory Tests 01/30/25 01/30/25 01/30/25 12:23 13:26 18:55 WBC 15.5 H RBC 3.28 L Hgb 9.0 L Hct 28.6 L MCV 87.2 MCH 27.4 MCHC 31.5 L RDW 16.2 H Plt Count 274 MPV 8.6 Immature Gran % (Auto) 1.9 H Neut % (Auto) 77.8 H Lymph % (Auto) 12.7 L [place] % (Auto) 7.0 Eos % (Auto) 0.3 Baso % (Auto) 0.3 Lymph # (Auto) 1.97 [place] # (Auto) 1.1 H Eos # (Auto) 0.1 Baso # (Auto) 0.0 Abs Immat Gran (auto) 0.29 H Absolute Neuts (auto) 12.1 H Absolute Nucleated RBC 0.000 Nucleated RBC % 0.0 Urine Color Yellow Urine Appearance Clear Urine pH 6.5 Ur Specific [place] 1.009 Urine Protein Negative Urine Glucose (UA) Negative Urine Ketones Negative Ur Blood (Man) Negative Urine Nitrate Negative Urine Bilirubin Negative Urine Urobilinogen 0.2 Leukocyte Esterase Rfl Negative Membranes Rupture Rom plus negative Vital signs: Vital Signs - 24 hr 01/30/25 12:05 01/30/25 12:08 01/30/25 12:13 Temperature Pulse Rate 108 H Respiratory Rate Blood Pressure 111/61 Pulse Oximetry 98 98 Oxygen Delivery 01/30/25 12:14 01/30/25 12:15 01/30/25 12:18 Temperature Pulse Rate 101 H Respiratory Rate Blood Pressure 112/65 Pulse Oximetry 99 Oxygen Delivery Room Air 01/30/25 12:23 01/30/25 12:28 01/30/25 12:30 Temperature Pulse Rate 104 H Respiratory Rate Blood Pressure 108/62 Pulse Oximetry 99 98 Oxygen Delivery 01/30/25 12:30 01/30/25 12:33 01/30/25 12:38 Temperature 98.6 F Pulse Rate Respiratory Rate 16 Blood Pressure Pulse Oximetry 99 97 Oxygen Delivery 01/30/25 12:43 01/30/25 12:45 01/30/25 12:48 Temperature Pulse Rate 103 H Respiratory Rate Blood Pressure 103/58 L Pulse Oximetry 98 99 Oxygen Delivery 01/30/25 12:53 01/30/25 12:58 01/30/25 13:00 Temperature Pulse Rate 102 H Respiratory Rate Blood Pressure 108/65 Pulse Oximetry 98 100 Oxygen Delivery 01/30/25 13:03 01/30/25 13:08 01/30/25 13:13 Temperature Pulse Rate Respiratory Rate Blood Pressure Pulse Oximetry 99 100 99 Oxygen Delivery 01/30/25 13:15 01/30/25 13:21 01/30/25 13:26 Temperature Pulse Rate 114 H Respiratory Rate Blood Pressure 116/66 Pulse Oximetry 91 100 Oxygen Delivery 01/30/25 13:31 01/30/25 13:36 01/30/25 13:41 Temperature Pulse Rate Respiratory Rate Blood Pressure Pulse Oximetry 100 100 100 Oxygen Delivery 01/30/25 13:46 01/30/25 13:51 01/30/25 13:56 Temperature Pulse Rate Respiratory Rate Blood Pressure Pulse Oximetry 100 99 99 Oxygen Delivery 01/30/25 14:00 01/30/25 14:01 01/30/25 14:06 Temperature Pulse Rate 111 H Respiratory Rate Blood Pressure 116/66 Pulse Oximetry 99 99 Oxygen Delivery 01/30/25 14:11 01/30/25 14:16 01/30/25 14:29 Temperature Pulse Rate Respiratory Rate Blood Pressure Pulse Oximetry 98 99 100 Oxygen Delivery 01/30/25 14:34 01/30/25 14:39 01/30/25 14:44 Temperature Pulse Rate Respiratory Rate Blood Pressure Pulse Oximetry 99 99 98 Oxygen Delivery 01/30/25 14:47 01/30/25 14:49 01/30/25 14:54 Temperature Pulse Rate 103 H Respiratory Rate Blood Pressure 108/61 Pulse Oximetry 98 99 Oxygen Delivery 01/30/25 14:59 01/30/25 15:00 01/30/25 15:04 Temperature Pulse Rate 117 H Respiratory Rate Blood Pressure 112/65 Pulse Oximetry 99 98 Oxygen Delivery 01/30/25 15:09 01/30/25 15:14 01/30/25 15:19 Temperature Pulse Rate Respiratory Rate Blood Pressure Pulse Oximetry 99 98 97 Oxygen Delivery 01/30/25 15:24 01/30/25 15:29 01/30/25 15:35 Temperature Pulse Rate Respiratory Rate Blood Pressure Pulse Oximetry 99 98 100 Oxygen Delivery 01/30/25 15:40 01/30/25 15:45 01/30/25 15:50 Temperature Pulse Rate Respiratory Rate Blood Pressure Pulse Oximetry 100 99 99 Oxygen Delivery 01/30/25 15:55 01/30/25 16:00 01/30/25 16:05 Temperature Pulse Rate 123 H Respiratory Rate Blood Pressure 114/59 L Pulse Oximetry 100 99 99 Oxygen Delivery 01/30/25 16:08 01/30/25 16:13 01/30/25 16:18 Temperature Pulse Rate Respiratory Rate Blood Pressure Pulse Oximetry 99 98 99 Oxygen Delivery 01/30/25 16:23 01/30/25 16:28 01/30/25 16:36 Temperature Pulse Rate Respiratory Rate Blood Pressure Pulse Oximetry 100 100 98 Oxygen Delivery 01/30/25 16:41 01/30/25 16:46 01/30/25 16:51 Temperature Pulse Rate Respiratory Rate Blood Pressure Pulse Oximetry 98 100 98 Oxygen Delivery 01/30/25 16:56 01/30/25 17:01 01/30/25 17:06 Temperature Pulse Rate Respiratory Rate Blood Pressure Pulse Oximetry 97 99 98 Oxygen Delivery 01/30/25 17:11 01/30/25 17:16 01/30/25 17:21 Temperature Pulse Rate Respiratory Rate Blood Pressure Pulse Oximetry 99 98 100 Oxygen Delivery 01/30/25 17:26 01/30/25 17:31 01/30/25 17:33 Temperature Pulse Rate Respiratory Rate Blood Pressure Pulse Oximetry 99 100 99 Oxygen Delivery 01/30/25 17:33 01/30/25 17:33 01/30/25 17:38 Temperature Pulse Rate Respiratory Rate Blood Pressure Pulse Oximetry 98 98 100 Oxygen Delivery 01/30/25 17:43 01/30/25 17:51 01/30/25 17:53 Temperature Pulse Rate Respiratory Rate Blood Pressure Pulse Oximetry 99 98 100 Oxygen Delivery 01/30/25 17:58 01/30/25 18:00 01/30/25 18:03 Temperature 99.4 F Pulse Rate 123 H Respiratory Rate Blood Pressure 115/64 Pulse Oximetry 100 99 Oxygen Delivery 01/30/25 18:08 01/30/25 18:13 01/30/25 18:18 Temperature Pulse Rate Respiratory Rate Blood Pressure Pulse Oximetry 99 99 99 Oxygen Delivery 01/30/25 18:23 01/30/25 18:28 01/30/25 18:32 Temperature Pulse Rate Respiratory Rate Blood Pressure Pulse Oximetry 99 99 93 Oxygen Delivery 01/30/25 18:32 01/30/25 18:33 01/30/25 18:38 Temperature Pulse Rate Respiratory Rate Blood Pressure Pulse Oximetry 95 96 100 Oxygen Delivery 01/30/25 18:43 01/30/25 18:48 01/30/25 18:53 Temperature Pulse Rate Respiratory Rate Blood Pressure Pulse Oximetry 100 100 100 Oxygen Delivery 01/30/25 18:58 01/30/25 19:03 01/30/25 19:08 Temperature Pulse Rate 120 H Respiratory Rate Blood Pressure 111/53 L Pulse Oximetry 99 100 100 Oxygen Delivery 01/30/25 19:13 01/30/25 19:18 01/30/25 19:23 Temperature Pulse Rate Respiratory Rate Blood Pressure Pulse Oximetry 100 100 100 Oxygen Delivery 01/30/25 19:28 01/30/25 19:33 01/30/25 19:38 Temperature Pulse Rate Respiratory Rate Blood Pressure Pulse Oximetry 100 100 100 Oxygen Delivery
== END 2025-01-30 19:58 | disposition home or self-care (01) ==
LOC: ANHOBOP 11:39 → ANHOBPP 11:40 → ANHOBOP 19:46 → ANHOBPP 19:46
PROVIDERS: Admitting Provider Obstetrics & Gynecology; Visit Provider Obstetrics & Gynecology
DX: O47.03 False labor before 37 completed weeks of gestation, third trimester (principal); Z3A.34 34 weeks gestation of pregnancy
CPT/HCPCS: 36415; 81003; 84112; 85025; 96372; A9270; G0378; G0379; J0702; J3105

== ENCOUNTER 2025-01-31 18:57 | Outpatient (CLI) | payer OTHER, SELFPAY ==
[2025-01-31] VITALS (26 sets, daily range): BP systolic 104–115; BP diastolic 66–74; PULSE 61–134; TEMP 36.9; O2SAT 82–100
--- NOTE | ~2025-01-31 | US_ITS ---
EXAMINATION: US OB limited w BPP DATE: 02/01/2025 12:59 CDT INDICATION: Decreased movements TECHNIQUE: Real-time transabdominal obstetric ultrasound. FINDINGS: There is a single living fetus in vertex presentation. The placenta is posterior without placenta pr evia. cardiac activity and movement is noted with a heart rate of 138 beats per minute. Biophysical profile: breathin of 2 movement: 2 of 2 tone: 2 of 2 Amniotic flud pocket: 2 of 2 Total score: 8 of 8 IMPRESSION: 1. Single living intrauterine in vertex presentation. 2: Total biophysical profile score of 8/8. Reviewed, dictated and finalized at location B.
--- OUTSIDE RECORDS SUMMARY | 2025-01-31 19:08 | XMS_ITS | Clinical Summary ---
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
[2025-01-31] MEDS: BETAMETHASONE SOD PHOS/ACETATE 30 MG/5 ML VIAL 12 MG IM (19:17)
== END 2025-01-31 21:10 | disposition home or self-care (01) ==
LOC: ANHOBOP 19:06 → ANHLDR 19:09
PROVIDERS: Visit Provider Obstetrics & Gynecology
DX: O36.8190 Decreased fetal movements, unspecified trimester, not applicable or unspecified (principal); Z3A.00 Weeks of gestation of pregnancy not specified
CPT/HCPCS: 59025; 76815; 76819; 96372; 99199; J0702

== ENCOUNTER 2025-02-01 15:28 | Observation (INO) | payer OTHER, SELFPAY ==
[2025-02-01] VITALS (15 sets, daily range): BP systolic 104–114; BP diastolic 59–71; PULSE 109–130; TEMP 36.7–37.5; O2SAT 96–99; BMI 24.0
--- OUTSIDE RECORDS SUMMARY | 2025-02-01 15:34 | XMS_ITS | Clinical Summary ---
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
[2025-02-01 16:01] LABS: Add Urine Microscopic? YES; Appearance Urine Cloudy (Clear); Glucose Urine UA Negative (Negative); Leukocyte Esterase Ur Negative LEU/UL (Negative); Nitrate Urine Negative (Negative); Non Pathogenic Casts 0-2; Specific Grav Ur 1.012 (1.001-1.035)
[2025-02-01] MEDS: DEXTROSE 5%/LACTATED RINGERS 1,000 ML 150 ML IV CONT (17:07)
--- NOTE | 2025-02-01 17:23 | OBADM ---
This patient, Shahriar Hernandez, admitted to the OB room OB Post 115 for observation. Patient/family oriented to hospital policies and general routines including ID bracelet, bed and alarms, visiting hours, pain management, procedures, bathroom and other care routines, personal items, smoking policy, room service/diet, and visiting hours. Patient/Family are encouraged to report perceived risks to care and to ask questions if they do not understand what they are told or what they should do. Pt. presents with reports of ctxns q5min. all day. Pt. states she is taking procardia 10mg po q4h and last dose was at 1600. She also reports that she has had betamethasone IM X2 doses, one 01/30/25 and the 2nd on 01/31/25. She denies LOF and vaginal bleeding at this time.
--- NOTE | 2025-02-01 20:28 | PC.NURSE ---
This RN notified Dr. Darby Morales of patient complaints of contractions feeling more frequent. MD notified contractions every 8-12 minutes. MD notified of patients pulse, fluid status, and medication update. New orders received to give Procardia 10mg at this time.
--- NOTE | 2025-02-04 14:49 | P.PNOB_ITS ---
OB - Triage/Final Diagnosis Visit Information Reason for evaluation: threatened labor Comments/Additional reasons for admission: I have assessed the risk for this patient, Shahriar Hernandez, and determined that she would benefit from observation care. Evaluation Laboratory results: Laboratory Tests 02/01/25 15:41 Urine Color Yellow Urine Appearance Cloudy H Urine pH 7.0 Ur Specific [place] 1.012 Urine Protein Negative Urine Glucose (UA) Negative Urine Ketones 3+ H Ur Blood (Man) Negative Urine Nitrate Negative Urine Bilirubin Negative Urine Urobilinogen 0.2 Leukocyte Esterase Rfl Negative Urine RBC 0-2 Urine WBC 0-5 Ur Squamous Epith Cells None seen Urine Bacteria None seen Urine Casts 0-2
== END 2025-02-01 21:55 | disposition home or self-care (01) ==
PROVIDERS: Admitting Provider Obstetrics & Gynecology; Visit Provider Obstetrics & Gynecology
DX: O47.03 False labor before 37 completed weeks of gestation, third trimester (principal); Z3A.34 34 weeks gestation of pregnancy
CPT/HCPCS: 81001; A9270; G0378; G0379; J7121

== ENCOUNTER 2025-02-03 18:50 | Emergency (ER) | payer OTHER, SELFPAY ==
--- NOTE | ~2025-02-03 | XR_ITS ---
EXAMINATION: XR chest 1V Exam Date/Time: 02/03/2025 19:21 CDT HISTORY: CHEST PAIN Comparison: 11/20/2014. RESULT: Lines, tubes, and devices: None. Lungs and pleura: Clear. Cardiomediastinal silhouette: Stable. Other: No acute osseous or upper abdominal finding. IMPRESSION: No acute cardiopulmonary process. Reviewed, dictated and finalized at location K.
[2025-02-03 18:52] VITALS: BP 118/73; PULSE 100; RESP 16; TEMP 36.2; O2SAT 99
--- OUTSIDE RECORDS SUMMARY | 2025-02-03 18:52 | XMS_ITS | Clinical Summary ---
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
--- NOTE | 2025-02-03 18:53 | ECG_ITS ---
Test Date: 2025-02-03 18:58:32 Measurements Intervals [place] Rate: 99 P: 39 FL: 107 QRS: 36 QRSD: 79 T: 36 QT: 334 QTc: 429 Interpretive Statements SINUS RHYTHM NONSPECIFIC ST & T-WAVE ABNORMALITY No previous ECG available for comparison Electronically Signed On 02-04-2025 10:50:55 CDT by Too Morris M.D.
[2025-02-03 19:29] LABS: Hematocrit 30.5 % (37.0-47.0); Hemoglobin 9.6 g/dL (12.0-15.0); Immature Granulocyte Percent A 2.3 % (0-0.5); Lymphocytes Absolute Auto 2.49 K/mm3 (0.9-3.2); Mean Corpuscular HGB Conc 31.5 g/dl (32-36); Mean Corpuscular Hemoglobin 27.3 pg (26-34); Mean Corpuscular Volume 86.6 fl (80-100); Nucleated Red Blood Cells Absolute Auto 0.000 K/mm3 (0.0-0.012); Nucleated Red Blood Cells Perc 0.0 % (0.0-0.2); Platelet Count Result 349 k/mm3 (150-375); Red Blood Count 3.52 M/mm3 (4.2-5.4); White Blood Count 14.3 K/mm3 (4.5-10.0)
[2025-02-03 19:40] LABS: Alanine Aminotransferase 14 U/L (6-35); Albumin Level 3.9 g/dL (3.5-5.1); Alkaline Phosphatase 90 U/L (38-126); Anion Gap 9 mmol/L (4-12); Aspartate Amino Transferase 20 U/L (14-36); Bilirubin,Total 0.2 mg/dL (0.2-1.3); Blood Urea Nitrogen 5 mg/dL (7-17); Calcium 9.4 mg/dL (8.4-10.2); Carbon Dioxide 20 mmol/L (22-30); Chloride 104 mmol/L (98-107); Estimated CRCL calculation 168 ml/min; Estimated Glomerular Filt Rate > 60; Glucose 86 mg/dL (65-110); Lipase 94 U/L (23-300); Potassium 3.3 mmol/L (3.4-5.0); Sodium 133 mmol/L (137-145); Total Protein 6.8 g/dL (6.3-8.2)
[2025-02-03 19:45] LABS: INR 1.0; Prothrombin Time 13.0 Seconds (11.1-14.7)
[2025-02-03 19:46] LABS: Partial Thromboplastin Time 24.5 Seconds (22.3-36.8)
[2025-02-03 19:52] LABS: Troponin I < 0.012 ng/mL (0.000-0.034)
[2025-02-03 19:59] VITALS: BP 107/67; RESP 22; O2SAT 100
[2025-02-03 20:01] VITALS: BP 108/73; RESP 22; O2SAT 100
[2025-02-03 20:14] VITALS: BP 108/73; PULSE 94; RESP 19; O2SAT 99
[2025-02-03 20:15] VITALS: PULSE 96
--- OUTSIDE RECORDS SUMMARY | 2025-02-03 20:52 | XMS_ITS | Clinical Summary ---
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
--- NOTE | 2025-02-03 21:07 | ED.ARRPALP ---
HPI - Arrhythmia/Palpitations General Chief Complaint: Arrhythmia/Palpitations Stated Complaint: CP Time Seen by Provider: 02/03/25 20:32 History of Present Illness HPI narrative: 19-year-old otherwise healthy female approximately [address] Darby Morales for OBGYN care. She was recently started on nifedipine for contractions to help slow the force fullness and frequency of them. She takes nifedipine every 4 hours and has been taking it since Tuesday. Since then she started developing some chest discomfort and chest pain as well as slightly decreased contraction pain. She states that the pain in her chest is retrosternal in described as a hot sensation and burning in quality. Does not go to her throat without any sour taste sensation. No history of GERD reflux during the . She started feeling nauseous after taking the medication. Endorses abdominal cramping and contractions but no leakage of fluids or bleeding. No trauma or injury. No history of cardiac disease. No complications during previous . Patient was concerned so she called her OBGYN who referred her to the ER for evaluation. Related Data Home Medications ?Medication ?Instructions ?Recorded ?Confirmed ?Last Taken ?Type albuterol sulfate 90 mcg/actuation 1 puff inhalation Q4H PRN asthma 01/09/20 02/03/25 Unknown History aerosol inhaler (ProAir HFA) vits no.126-ferrous fum 1 tablet PO DAILY 02/24/24 02/03/25 02/03/25 History 28 mg iron-folic acid 800 mcg tablet (Classic ) ferrous sulfate 325 mg (65 mg 325 mg PO QAM 01/30/25 02/03/25 02/03/25 History iron) tablet (Iron (ferrous sulfate)) Allergies Allergy/AdvReac Type Severity Reaction Status Date / Time latex Allergy Mild rash Verified 02/03/25 22:34 Sulfa (Sulfonamide Allergy Mild rash Verified 02/03/25 22:34 Antibiotics) Review of Systems Review of Systems: As reviewed above in HPI PMFSH Past Medical History Medical History Anxiety Eczema Asthma Surgical History Surgical History H/O wrist surgery Bilateral tendon removal Family History Family History Mother Endometriosis Father Diabetes mellitus Asthma Wuuif-3-hlfojokamot deficiency High cholesterol Sibling Asthma Sibling No problems noted. Grandparent Heart attack Social History Social History Smoking status: Never smoker Alcohol intake: never Substance use: never Do You Feel Safe in your Home?: Yes Lack of Transportation: No Lack of Food: Never True Current Housing: I Have Housing Concerned About Future Housing: No Difficulty Paying Gas/Electric Bills: No Difficulty Paying for Meds: No Currently Unemployed: No Education: High School Diploma/GED Difficulty w/ Childcare or Family Care: No Living arrangements: with family Occupation/Education: occupation Gender identity (if verbalized by the patient): Female Sexual Orientation (if Verbalized by the Patient): Straight or Heterosexual Spiritual care concerns: No Exam Narrative: GENERAL: [Well-appearing, well-nourished, and in no acute distress.] HEAD: [Normocephalic, atraumatic.] EYES: [PERRLA and EOMI.] ENT: Nares clear, no rhinorrhea or epistaxis. Mucous membranes moist. NECK: Supple. CHEST: [Clear to auscultation. No respiratory distress.] HEART: [Regular rate and rhythm]. No murmur heard. [Normal peripheral pulses.] ABDOMEN: Gravid but soft nontender, [No rigidity or guarding] EXTREMITIES: Normal range of motion. [No edema.] SKIN: Warm, dry, no rash. NEURO: [No focal deficits]. Alert and oriented [x3.] PSYCH: [Normal mood and affect.] Course Vital Signs Vital signs: Vital Signs Temperature 36.2 C L 02/03/25 18:52 Pulse Rate 100 02/03/25 18:52 Respiratory Rate 16 02/03/25 18:52 Blood Pressure 118/73 02/03/25 18:52 Pulse Oximetry 99 02/03/25 18:52 Oxygen Delivery Room Air 02/03/25 18:52 Temperature 36.2 C L 02/03/25 18:52 Pulse Rate 96 02/03/25 20:15 Respiratory Rate 19 02/03/25 20:14 Blood Pressure 108/73 02/03/25 20:14 Pulse Oximetry 99 02/03/25 20:14 Oxygen Delivery Room Air 02/03/25 20:14 MDM - Arrhythmia/Palpitations MDM Narrative Medical decision making narrative: 19-year-old otherwise healthy female approximately [address] Darby Morales for OBGYN care. She was recently started on nifedipine for contractions to help slow the force fullness and frequency of them. She takes nifedipine every 4 hours and has been taking it since Tuesday. Since then she started developing some chest discomfort and chest pain as well as slightly decreased contraction pain. She states that the pain in her chest is retrosternal in described as a hot sensation and burning in quality. Does not go to her throat without any sour taste sensation. No history of GERD reflux during the . She started feeling nauseous after taking the medication. Endorses abdominal cramping and contractions but no leakage of fluids or bleeding. No trauma or injury. No history of cardiac disease. No complications during previous . Patient was concerned so she called her OBGYN who referred her to the ER for evaluation. Patient has reassuring set of vitals without any tachycardia, tachypnea fever, hypoxia blood pressure concerns. She has an unremarkable examination but does have a gravid abdomen that is nontender. Given patient recently started on nifedipine a calcium channel cricket and taking it quite frequently over last few days it could be potentially related to some esophageal smooth muscle dilation leading towards GERD and reflux type symptoms. Low suspicion cardiac pathology or other symptoms such as bronchitis, pleurisy or pneumonia. Patient was given Pepcid and laboratory studies were obtained including CBC, CMP, troponin, EKG and chest x-ray. Laboratory studies and EKG were unremarkable. She is slightly hypokalemic and given oral potassium replacement. Mildly elevated white count but down trending from her previous levels and not concerning for signs of infection combined with her negative chest x-ray and no infectious type symptoms on exam or history. Troponin is negative. Chest x-ray without any acute findings. EKG is nonischemic. Negative lipase. Patient is hemodynamically stable and will be sent OB for further evaluation of her contractions and we discussed potential differential diagnoses of reflux/gerd with the patient and all her questions were answered. Medical Records Attestation: I reviewed the patient's medical records. Lab Data Attestation: I reviewed the patient's lab results. 02/03/25 19:06 02/03/25 19:06 Labs: Lab Results 02/03/25 Range/Units 19:06 WBC 14.3 H (4.5-10.0) K/mm3 RBC 3.52 L (4.2-5.4) M/mm3 Hgb 9.6 L (12.0-15.0) g/dL Hct 30.5 L (37.0-47.0) % MCV 86.6 (80-100) fl MCH 27.3 (26-34) pg MCHC 31.5 L (32-36) g/dl RDW 16.2 H (11.5-14.5) % Plt Count 349 (150-375) k/mm3 MPV 8.7 (7.4-10.4) fl Immature Gran % (Auto) 2.3 H (0-0.5) % Neut % (Auto) 73.0 (45.5-73.1) % Lymph % (Auto) 17.4 L (18.3-44.2) % [place] % (Auto) 6.4 (2.6-8.5) % Eos % (Auto) 0.6 (0-4.4) % Baso % (Auto) 0.3 (0.2-1.2) % Lymph # (Auto) 2.49 (0.9-3.2) K/mm3 [place] # (Auto) 0.9 H (0.1-0.6) K/mm3 Eos # (Auto) 0.1 (0-0.3) K/mm3 Baso # (Auto) 0.0 (0.0-0.1) K/mm3 Abs Immat Gran (auto) 0.33 H (0.00-0.031) K/mm3 Absolute Neuts (auto) 10.5 H (1.3-6.7) K/mm3 Absolute Nucleated RBC 0.000 (0.0-0.012) K/mm3 Nucleated RBC % 0.0 (0.0-0.2) % PT 13.0 (11.1-14.7) Seconds INR 1.0 APTT 24.5 (22.3-36.8) Seconds Sodium 133 L (137-145) mmol/L Potassium 3.3 L (3.4-5.0) mmol/L Chloride 104 (98-107) mmol/L Carbon Dioxide 20 L (22-30) mmol/L Anion Gap 9 (4-12) mmol/L BUN 5 L (7-17) mg/dL Creatinine 0.37 L (0.7-1.0) mg/dL Estim Creat Clear Calc 168 ml/min Estimated GFR > 60 (59 - ) Glucose 86 (65-110) mg/dL Calcium 9.4 (8.4-10.2) mg/dL Total Bilirubin 0.2 (0.2-1.3) mg/dL AST 20 (14-36) U/L ALT 14 (6-35) U/L Alkaline Phosphatase 90 (38-126) U/L Troponin I < 0.012 (0.000-0.034) ng/mL Total Protein 6.8 (6.3-8.2) g/dL Albumin 3.9 (3.5-5.1) g/dL Lipase 94 (23-300) U/L Imaging Data Attestation: I personally reviewed and interpreted this imaging study as follows: My impression: Impressions Chest X-Ray 02/03/25 19:40 IMPRESSION: No acute cardiopulmonary process. Discharge Plan Discharge Clinical Impression: Chest pain during , Burning reflux, Third trimester Patient Disposition: Still a Patient Condition: Stable Patient Language: Greek Prescriptions: No Action Classic 28 mg iron- 800 mcg Tablet 1 tablet PO DAILY docusate sodium [Colace] 100 mg capsule 100 mg PO BID Qty: 60 0RF ferrous sulfate [Iron (ferrous sulfate)] 325 mg (65 mg iron) tablet 325 mg PO QAM nifedipine 10 mg capsule 10 mg PO .Q4 PRN (Reason: Contractions) Qty: 60 0RF nifedipine 10 mg capsule 10 mg PO .Q6 PRN (Reason: Contractions ) Qty: 60 0RF albuterol sulfate [ProAir HFA] 90 mcg/actuation HFA aerosol inhaler 1 puff INHALATION Q4H PRN (Reason: asthma) Follow-up/Referrals: PHYSICIAN,[facility] [Primary Care Provider] - Time of Disposition: 21:14
[2025-02-03] MEDS: POTASSIUM CHLORIDE 20 MEQ PACKET (FOR LIQUID) 40 MEQ PO (21:15)
[2025-02-03] MEDS: FAMOTIDINE 20 MG/2 ML VIAL IV PUSH (21:16)
== END 2025-02-03 22:00 | disposition still patient (30) ==
PROVIDERS: Emergency Medicine; Emergency Provider Student in an Organized Health Care Education/Training Program
DX: O26.893 Other specified pregnancy related conditions, third trimester (principal); R07.89 Other chest pain; O99.613 Diseases of the digestive system complicating pregnancy, third trimester; K21.9 Gastro-esophageal reflux disease without esophagitis; O99.513 Diseases of the respiratory system complicating pregnancy, third trimester; J45.909 Unspecified asthma, uncomplicated; Z3A.34 34 weeks gestation of pregnancy
CPT/HCPCS: 36415; 71045; 80053; 81003; 83690; 84484; 85025; 85610; 85730; 93005; 96374; 99284; A9270; G0378; G0379

== ENCOUNTER 2025-02-03 22:02 | Observation (INO) | payer OTHER, SELFPAY ==
[2025-02-03] VITALS (28 sets, daily range): BP systolic 99–115; BP diastolic 51–78; PULSE 85–119; TEMP 36.7; O2SAT 98–100; BMI 24.0
--- OUTSIDE RECORDS SUMMARY | 2025-02-03 22:07 | XMS_ITS | Clinical Summary ---
Author Organization 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
--- NOTE | 2025-02-03 22:22 | OBADM ---
This patient, Shahriar Hernandez, admitted to the OB room OB Post 116 for observation. Patient/family oriented to hospital policies and general routines including ID bracelet, bed and alarms, visiting hours, pain management, procedures, bathroom and other care routines, personal items, smoking policy, room service/diet, and visiting hours. Patient/Family are encouraged to report perceived risks to care and to ask questions if they do not understand what they are told or what they should do.
[2025-02-03 23:21] LABS: Add Urine Microscopic? NO; Appearance Urine Clear (Clear); Glucose Urine UA Negative (Negative); Leukocyte Esterase Ur Negative LEU/UL (Negative); Nitrate Urine Negative (Negative); Specific Grav Ur 1.005 (1.001-1.035)
--- NOTE | 2025-02-11 07:55 | P.PNOB_ITS ---
OB - Triage/Final Diagnosis Visit Information Reason for evaluation: threatened labor Comments/Additional reasons for admission: I have assessed the risk for this patient, Shahriar Hernandez, and determined that she would benefit from observation care. Evaluation Laboratory results: Laboratory Tests 02/03/25 23:14 Urine Color Yellow Urine Appearance Clear Urine pH 8.0 Ur Specific [place] 1.005 Urine Protein Negative Urine Glucose (UA) Negative Urine Ketones Negative Ur Blood (Man) Negative Urine Nitrate Negative Urine Bilirubin Negative Urine Urobilinogen 0.2 Leukocyte Esterase Rfl Negative
== END 2025-02-04 00:05 | disposition home or self-care (01) ==
PROVIDERS: Admitting Provider Obstetrics & Gynecology Gynecology; Visit Provider Obstetrics & Gynecology Gynecology
DX: O47.03 False labor before 37 completed weeks of gestation, third trimester (principal); Z3A.36 36 weeks gestation of pregnancy
CPT/HCPCS: 81003; A9270; G0378; G0379

== ENCOUNTER 2025-02-06 17:43 | Observation (INO) | payer OTHER, SELFPAY ==
[2025-02-06] VITALS (19 sets, daily range): PULSE 107–123; O2SAT 98–100; BMI 23.7
--- NOTE | ~2025-02-06 | US_ITS ---
EXAMINATION: US OB BPP wo non-stress DATE: 02/06/2025 21:55 INDICATION: cardiac decelerations with nonstress test during third trimester of TECHNIQUE: Real-time pelvic ultrasound was performed. The interpreting radiologist was not present fo r the study. COMPARISON: None. FINDINGS: There is a single living fetus in vertex presentation. The placenta is posterior and not low-lying. heart rate is 147 beats per minute (bpm). Normal amniotic fluid index of 10.2 cm (5th%-95%: 7.9 -24.9 cm at 35 weeks estimated gestational age). Biophysical profile performed by the technologist: breathing (30 sec sustained breathing in 30 minutes): 2 out of 2 movement (3 gross body movements in 30 minutes): 2 out of 2 tone (one episode of zigkjey-mlyagrikn-mluiets limb movement): 2 out of 2 Amniotic fluid pocket (2 cm): 2 out of 2 Total score: 8 out of 8 IMPRESSION: 1. Single living fetus in vertex presentation with heart rate of 147 bpm. 2. Biophysical profile 8 out of 8. 3. Normal amniotic fluid index of 10.2 cm. Reviewed, dictated and finalized at location A.
--- OUTSIDE RECORDS SUMMARY | 2025-02-06 18:10 | XMS_ITS | Clinical Summary ---
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
[2025-02-06 21:23] LABS: OBXCEM ROM Plus Negative (Negative)
--- NOTE | 2025-02-08 06:41 | PM.OBTRLD ---
OB - Triage/Final Diagnosis Visit Information Date of evaluation: 02/07/25 Reason for evaluation: threatened labor Comments/Additional reasons for admission: I have assessed the risk for this patient, Shahriar Hernandez, and determined that she would benefit from observation care. Evaluation Laboratory results: Laboratory Tests 02/06/25 18:45 Membranes Rupture Rom plus negative
== END 2025-02-06 22:12 | disposition home or self-care (01) ==
PROVIDERS: Admitting Provider Obstetrics & Gynecology; Visit Provider Obstetrics & Gynecology
DX: O47.03 False labor before 37 completed weeks of gestation, third trimester (principal); Z3A.35 35 weeks gestation of pregnancy
CPT/HCPCS: 76819; 84112; 96372; G0378; G0379

== ENCOUNTER 2025-02-20 11:03 | Outpatient (RCR) | payer OTHER, SELFPAY ==
[2025-02-20 11:56] VITALS: BP 116/72; PULSE 113
--- NOTE | 2025-03-06 07:11 | P.HP_ITS ---
H&P: HPI History of Present Illness Date/Time: 03/06/25 07:11 Chief Complaint: Induction of labor at term Narrative: This is a 19-year-old 2 para 1 whose last menstrual period is unknown but EDC is 03/13/2025 confirmed by 7 week ultrasound presents at the 39 weeks gestation for induction labor. The short interval between her last delivery. has been uncomplicated with normal diabetic screen negative group B strep and she received RhoGAM at 28 weeks for being Rh negative. Favorite cervix is favorable Review of Systems Review of Systems: As reviewed above in HPI [facility] Past Medical History Medical History Anxiety Eczema Asthma Surgical History Surgical History H/O wrist surgery Bilateral tendon removal Family History Family History Mother Endometriosis Father Diabetes mellitus Asthma Riwlc-2-rtgtlfdiazu deficiency High cholesterol Sibling Asthma Sibling No problems noted. Grandparent Heart attack Social History Social History Smoking status: Never smoker Alcohol intake: never Substance use: never Do You Feel Safe in your Home?: Yes Lack of Transportation: No Lack of Food: Never True Current Housing: I Have Housing Concerned About Future Housing: No Difficulty Paying Gas/Electric Bills: No Difficulty Paying for Meds: No Currently Unemployed: No Education: High School Diploma/GED Difficulty w/ Childcare or Family Care: No Living arrangements: with family Occupation/Education: occupation Gender identity (if verbalized by the patient): Female Sexual Orientation (if Verbalized by the Patient): Straight or Heterosexual Spiritual care concerns: No Meds Home Medications and Allergies Home Medications ?Medication ?Instructions ?Recorded ?Confirmed ?Type vits no.126-ferrous fum 1 tablet PO DAILY 04/1002/20/25 History 28 mg iron-folic acid 800 mcg tablet (Classic ) ferrous sulfate 325 mg (65 mg 325 mg PO QAM 01/30/25 0 02/20/25 History iron) tablet (Iron (ferrous sulfate)) Allergies Allergy/AdvReac Type Severity Reaction Status Date / Time latex Allergy Mild rash Verified 02/20/25 21:45 Sulfa (Sulfonamide Allergy Mild rash Verified 02/03/25 22:34 Antibiotics) Exam Const: General: cooperative, healthy appearing, comfortable, well groomed and average body habitus Orientation/consciousness: oriented to person, oriented to place and oriented to time HENMT: Head: normal to inspection Resp: Effort & Inspection: normal respiratory effort Cardio: Rate: regular rate Rhythm: regular rhythm Heart sounds: S1 normal heart sound present and S2 normal heart sound present GI: Inspection: normal to inspection (Gravid soft uterus) Auscultation: normal bowel sounds : External Female Exam: normal external appearance Speculum Exam - Vagina: normal appearance of the vagina Speculum Exam - Cervix: normal appearance of the cervix (Cervix 2 ) Assessment and Plan Assessment and plan (1) Term : Code(s): Z34.90 - Encounter for supervision of normal , unspecified, unspecified trimester Status: Acute Plan Medical induction of labor. Spontaneous vaginal delivery is expected. She is an epidural candidate
== END 2025-03-14 13:38 | disposition other institution (70) ==
LOC: ANHOBOP 11:03
PROVIDERS: Visit Provider Obstetrics & Gynecology
DX: O36.8130 Decreased fetal movements, third trimester, not applicable or unspecified (principal); Z3A.37 37 weeks gestation of pregnancy
CPT/HCPCS: 59025

== ENCOUNTER 2025-03-06 08:40 | Inpatient (IN) | payer OTHER, SELFPAY ==
[2025-03-06] VITALS (193 sets, daily range): BP systolic 92–128; BP diastolic 50–94; PULSE 79–133; TEMP 36.7–37.2; O2SAT 95–100; BMI 23.6
--- OUTSIDE RECORDS SUMMARY | 2025-03-06 08:50 | XMS_ITS | Clinical Summary ---
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
--- NOTE | 2025-03-06 09:14 | LDADM ---
This patient, Shahriar Hernandez, was admitted to Labor/Delivery/Recovery 105 on 03/06/25 at 08:40. Plans for labor, pain management and were discussed with patient. Patient/family oriented to hospital policies and general routines including ID bracelet, bed and alarms, visiting hours, pain management, procedures, bathroom and other care routines, personal items, smoking policy, room service/diet and guest tray routines, infant security routines, and visiting hours. Patient/Family are encouraged to report perceived risks to care and to ask questions if they do not understand what they are told or what they should do. See OBIX for further documentation.
[2025-03-06 09:34] LABS: Hematocrit 28.7 % (37.0-47.0); Hemoglobin 9.0 g/dL (12.0-15.0); Immature Granulocyte Percent A 1.9 % (0-0.5); Lymphocytes Absolute Auto 2.46 K/mm3 (0.9-3.2); Mean Corpuscular HGB Conc 31.4 g/dl (32-36); Mean Corpuscular Hemoglobin 26.1 pg (26-34); Mean Corpuscular Volume 83.2 fl (80-100); Nucleated Red Blood Cells Absolute Auto 0.000 K/mm3 (0.0-0.012); Nucleated Red Blood Cells Perc 0.0 % (0.0-0.2); Platelet Count Result 335 k/mm3 (150-375); Red Blood Count 3.45 M/mm3 (4.2-5.4); White Blood Count 15.0 K/mm3 (4.5-10.0)
[2025-03-06] MEDS: LACTATED RINGERS 1,000 ML 125 ML IV CONT ×3 (10:01→20:06)
[2025-03-06] MEDS: OXYTOCIN 30 UNITS/NS 500 ML 30 UNITS/500 ML BAG IV CONT (10:04)
[2025-03-06 10:35] LABS: Syphilis IgG/IgM Antibody Non-Reactive (Nonreactive)
[2025-03-06 10:49] LABS: HIV 1/2 Ab P24 Ag Result Negative (Negative)
--- NOTE | 2025-03-06 10:53 | WPDANESEPPF ---
Anes - Initial Pre Proc Eval Procedure: labor epidural Date/Time: 03/06/25 10:53 Surgeon: Rafael Morales MD Pre Op Diagnosis: labor pain Pre Op Diagnosis: IOL Patient Data Age: 19 Gender: F Height: 1.63 m Weight: 62.59 kg Last Vital Signs Pulse 92 03/06/25 10:45 BP 117/70 03/06/25 10:45 Pulse Ox 96 03/06/25 10:51 O2 Del Method Room Air 03/06/25 09:08 Allergies Allergy/AdvReac Type Severity Reaction Status Date / Time latex Allergy Mild rash Verified 03/06/25 09:32 Sulfa (Sulfonamide Allergy Mild rash Verified 03/06/25 09:32 Antibiotics) Home Medications ?Medication ?Instructions ?Recorded ?Confirmed ?Type vits no.126-ferrous fum 1 tablet PO DAILY 02/24/24 03/06/25 History 28 mg iron-folic acid 800 mcg tablet (Classic ) ferrous sulfate 325 mg (65 mg 325 mg PO QAM 01/30/25 03/06/25 History iron) tablet (Iron (ferrous sulfate)) Laboratory Tests 03/06/25 03/06/25 08:57 08:58 WBC 15.0 H K/mm3 (4.5-10.0) RBC 3.45 L M/mm3 (4.2-5.4) Hgb 9.0 L g/dL (12.0-15.0) Hct 28.7 L % (37.0-47.0) MCV 83.2 fl (80-100) MCH 26.1 pg (26-34) MCHC 31.4 L g/dl (32-36) RDW 15.6 H % (11.5-14.5) Plt Count 335 k/mm3 (150-375) MPV 8.8 fl (7.4-10.4) Immature Gran % (Auto) 1.9 H % (0-0.5) Neut % (Auto) 74.9 H % (45.5-73.1) Lymph % (Auto) 16.4 L % (18.3-44.2) [place] % (Auto) 5.9 % (2.6-8.5) Eos % (Auto) 0.6 % (0-4.4) Baso % (Auto) 0.3 % (0.2-1.2) Lymph # (Auto) 2.46 K/mm3 (0.9-3.2) [place] # (Auto) 0.9 H K/mm3 (0.1-0.6) Eos # (Auto) 0.1 K/mm3 (0-0.3) Baso # (Auto) 0.0 K/mm3 (0.0-0.1) Abs Immat Gran (auto) 0.28 H K/mm3 (0.00-0.031) Absolute Neuts (auto) 11.3 H K/mm3 (1.3-6.7) Absolute Nucleated RBC 0.000 K/mm3 (0.0-0.012) Nucleated RBC % 0.0 % (0.0-0.2) Syphilis IgG/IgM Ab Non-reactive (Nonreactive) HIV 1&2 Ab/P24 Ag 4thGn Negative (Negative) Blood Type O Negative Antibody Screen Positive Antibody Identification Pending Antigen Identification Pending TONY, IgG Interpret Pending TONY, Poly Interpret Negative TONY, Complement Interp Pending Patient hx anesthesia problems: none Family hx anesthesia problems: none Results Review: All pre-operative results and documents have been reviewed as part of the pre-operative evaluation. [facility] Past Medical History Medical History Anxiety Eczema Asthma Surgical History Surgical History H/O wrist surgery Bilateral tendon removal Family History Family History Mother Endometriosis Father Diabetes mellitus Asthma Niwhb-[id number] deficiency High cholesterol Sibling Asthma Sibling No problems noted. Grandparent Heart attack Social History Social History Smoking status: Never smoker Alcohol intake: never Substance use: never Do You Feel Safe in your Home?: Yes Lack of Transportation: No Lack of Food: Never True Current Housing: I Have Housing Concerned About Future Housing: No Difficulty Paying Gas/Electric Bills: No Difficulty Paying for Meds: No Currently Unemployed: No Education: High School Diploma/GED Difficulty w/ Childcare or Family Care: No Living arrangements: with family Occupation/Education: occupation Gender identity (if verbalized by the patient): Female Sexual Orientation (if Verbalized by the Patient): Straight or Heterosexual Spiritual care concerns: No Anes - Eval Final PreProcedure Day of Procedure 03/06/25 10:53 Patient weight: normal Heart: regular rate and rhythm Lungs: clear to auscultation and normal air movement Airway: Mallampati scale class II Neurological: alert and oriented ASA classification: II Emergent: no Anesthetic plan: proceed Anesthesia type and monitoring: regional epidural Results Review: All pre-operative results and documents have been reviewed as part of the pre-operative evaluation. Informed Consent: The patient's anesthetic plan and its attendant risks and benefits were discussed with the patient/family/POA. Questions were solicited and answers provided to the satisfaction of the patient/family/POA.
--- NOTE | 2025-03-06 10:58 | PM.OBPNLAB ---
Pain Control Date/time seen: 03/06/25 10:58 Pain control: tolerating well Pelvic Exam Dilation (cm): 3 Effacement (%): 75 station: -2 Amniotic membrane status: Leaking
--- NOTE | 2025-03-06 16:11 | PM.OBPNLAB ---
Pain Control Date/time seen: 03/06/25 16:11 Pain control: tolerating well and epidural Pelvic Exam Dilation (cm): 4 Effacement (%): 75 station: -2 Amniotic membrane status: Leaking
[2025-03-06] MEDS: ONDANSETRON INJ 4 MG/2 ML VIAL IV PUSH (22:30)
[2025-03-07] VITALS (16 sets, daily range): BP systolic 104–160; BP diastolic 35–144; PULSE 81–113; RESP 12–16; TEMP 36.6–37.4; O2SAT 97–100
--- NOTE | 2025-03-07 00:12 | PM.OBPRVD ---
OB - Vaginal Delivery Note Procedure Delivery date: 03/07/25 Events: Elective Induction of Labor Induction method: AROM Delivery augmentation: Pitocin Delivery monitor: External FHT and Internal Uterine Route of delivery: Episiotomy description: None Laceration Description: Perineal - 2nd Degree Delivery repair: vicryl Specimen: No Quantitative Blood Loss (ml): 62 Anesthesia type: Epidural Disposition: Floor Narrative: And for induction of labor in the early a.m.. Artificial rupture membranes performed rest unremarkable 1st stage of labor to completely dilated which is complete she pushed delivered head spontaneously in the MARTINE position. Anterior posterior shoulder delivered spontaneously. Cord clamped x2 cut placed in warmer given 8 [id number]. Cord blood was drawn. Placenta delivered intact spontaneously. Twenty of Pitocin placed IV to help firm the uterus. A small second-degree laceration which did not extend was noted and layer 3-0 Vicryl was used there were no complications mom and baby doing fine at the time of dictation [place] Baby Date of : 03/06/25 Time of : 23:58 Gestational Age by Date: 38 gender: Female presentation: vertex position: Right Occiput Anterior Placenta delivery description: Spontaneous Cord Vessel Description: 3 Vessels, Nuchal Cord and Loose score one minute: 8 score five minutes: 9
--- NOTE | 2025-03-07 00:14 | P.DS_ITS ---
DS: Admitting Diagnosis Discharge Date 03/08/2025 Admitting Diagnosis Term DS: Discharge Diagnosis Discharge Diagnosis (1) Term : Code(s): Z34.90 - Encounter for supervision of normal , unspecified, unspecified trimester Status: Acute DS: Summary Hospital Course Reason for hospitalization: Patient admitted for induction of labor on 03/06/2025 and delivered spontaneously a female infant at 11:58 p.m. with epidural anesthesia Hospital Course: Patient's hospital course unremarkable. She remained afebrile. She was up, voiding without difficulty, eating regular diet, ambulating, and generally without complaints. Time Spent with Patient Time attestation: Total time spent providing and/or coordinating discharge services: Exam Const: General: cooperative, healthy appearing, comfortable, well groomed and average body habitus Orientation/consciousness: oriented to person, oriented to place and oriented to time HENMT: Head: normal to inspection Resp: Effort & Inspection: normal respiratory effort Cardio: Rate: regular rate Rhythm: regular rhythm Heart sounds: S1 normal heart sound present and S2 normal heart sound present GI: Inspection: normal to inspection (Gravid soft uterus) Auscultation: normal bowel sounds : External Female Exam: normal external appearance Speculum Exam - Vagina: normal appearance of the vagina Speculum Exam - Cervix: normal rip earance of the cervix (Cervix 2 ) DS: Data Data Completed and Pending Labs on day of discharge: Labs from last 24 hours 03/06/25 03/06/25 08:58 08:57 WBC 15.0 H RBC 3.45 L Hgb 9.0 L Hct 28.7 L MCV 83.2 MCH 26.1 MCHC 31.4 L RDW 15.6 H Plt Count 335 MPV 8.8 Immature Gran % (Auto) 1.9 H Neut % (Auto) 74.9 H Lymph % (Auto) 16.4 L [place] % (Auto) 5.9 Eos % (Auto) 0.6 Baso % (Auto) 0.3 Lymph # (Auto) 2.46 [place] # (Auto) 0.9 H Eos # (Auto) 0.1 Baso # (Auto) 0.0 Abs Immat Gran (auto) 0.28 H Absolute Neuts (auto) 11.3 H Absolute Nucleated RBC 0.000 Nucleated RBC % 0.0 Syphilis IgG/IgM Ab Non-reactive HIV 1&2 Ab/P24 Ag 4thGn Negative Blood Type O Negative Antibody Screen Positive Antibody Identification Passive Due to RH Imm Glob Antigen Identification TNP TONY, IgG Interpret Not Performed TONY, Poly Interpret Negative TONY, Complement Interp Not Performed Discharge Plan Discharge Attending physician on discharge: Rafael Harper Discharging Clinician: Rafael Harper Patient Disposition: Home Activity: may shower, no straining and pelvic rest Diet: heart healthy Wound Care Instructions: follow printed instructions Patient Instructions: Antibiotic Form Patient Language: Hebrew Stand Alone Forms: General Discharge Information Follow-up/Referrals: Rafael Harper MD [Physician, [facility]] Discharge Medications: Continued Classic 28 mg iron- 800 mcg Tablet 1 tablet PO DAILY ferrous sulfate [Iron (ferrous sulfate)] 325 mg (65 mg iron) tablet 325 mg PO QAM Date of admission: 03/06/25 08:40 Primary Care Provider: Mitesh,Minnie Sanchez Admitting Provider: Rafael Harper Attending physician on admission: Rafael Harper Condition: Stable
--- NOTE | 2025-03-07 00:15 | PM.IMHP ---
H&P: HPI History of Present Illness Date/Time: 03/07/25 00:15 [facility] Past Medical History Medical History Anxiety Eczema Asthma Surgical History Surgical History H/O wrist surgery Bilateral tendon removal Family History Family History Mother Endometriosis Father Diabetes mellitus Asthma Pdeuh-[id number] deficiency High cholesterol Sibling Asthma Sibling No problems noted. Grandparent Heart attack Social History Social History Smoking status: Never smoker Alcohol intake: never Substance use: never Do You Feel Safe in your Home?: Yes Lack of Transportation: No Lack of Food: Never True Current Housing: I Have Housing Concerned About Future Housing: No Difficulty Paying Gas/Electric Bills: No Difficulty Paying for Meds: No Currently Unemployed: No Education: High School Diploma/GED Difficulty w/ Childcare or Family Care: No Living arrangements: with family Occupation/Education: occupation Gender identity (if verbalized by the patient): Female Sexual Orientation (if Verbalized by the Patient): Straight or Heterosexual Spiritual care concerns: No Meds Home Medications and Allergies Home Medications ?Medication ?Instructions ?Recorded ?Confirmed ?Type vits no.126-ferrous fum 1 tablet PO DAILY 02/24/24 03/06/25 History 28 mg iron-folic acid 800 mcg tablet (Classic ) ferrous sulfate 325 mg (65 mg 325 mg PO QAM 01/30/25 03/06/25 History iron) tablet (Iron (ferrous sulfate)) Allergies Allergy/AdvReac Type Severity Reaction Status Date / Time latex Allergy Mild rash Verified 03/06/25 09:32 Sulfa (Sulfonamide Allergy Mild rash Verified 03/06/25 09:32 Antibiotics) Vital Signs Vital Signs - 24 hr 03/06/25 09:06 03/06/25 09:08 03/06/25 09:15 Temperature Pulse Rate 109 H 105 H Blood Pressure 111/69 104/67 Pulse Oximetry Oxygen Delivery Room Air 03/06/25 09:45 03/06/25 10:01 03/06/25 10:06 Temperature Pulse Rate 99 102 H Blood Pressure 102/76 120/70 Pulse Oximetry 97 Oxygen Delivery 03/06/25 10:11 03/06/25 10:15 03/06/25 10:16 Temperature Pulse Rate 99 Blood Pressure 116/66 Pulse Oximetry 97 98 Oxygen Delivery 03/06/25 10:21 03/06/25 10:26 03/06/25 10:30 Temperature Pulse Rate 93 Blood Pressure 117/68 Pulse Oximetry 97 97 Oxygen Delivery 03/06/25 10:31 03/06/25 10:36 03/06/25 10:41 Temperature Pulse Rate Blood Pressure Pulse Oximetry 97 97 96 Oxygen Delivery 03/06/25 10:45 03/06/25 10:46 03/06/25 10:51 Temperature Pulse Rate 92 Blood Pressure 117/70 Pulse Oximetry 97 96 Oxygen Delivery 03/06/25 10:56 03/06/25 11:00 03/06/25 11:01 Temperature Pulse Rate 102 H Blood Pressure 120/76 Pulse Oximetry 99 99 Oxygen Delivery 03/06/25 11:06 03/06/25 11:11 03/06/25 11:15 Temperature Pulse Rate 102 H Blood Pressure 127/74 Pulse Oximetry 99 98 Oxygen Delivery 03/06/25 11:16 03/06/25 11:21 03/06/25 11:26 Temperature Pulse Rate Blood Pressure Pulse Oximetry 99 100 99 Oxygen Delivery 03/06/25 11:30 03/06/25 11:31 03/06/25 11:36 Temperature Pulse Rate 95 Blood Pressure 125/71 Pulse Oximetry 99 99 Oxygen Delivery 03/06/25 11:41 03/06/25 11:45 03/06/25 11:46 Temperature Pulse Rate 91 Blood Pressure 119/71 Pulse Oximetry 99 99 Oxygen Delivery 03/06/25 11:51 03/06/25 11:56 03/06/25 12:00 Temperature 98.1 F Pulse Rate 92 Blood Pressure 121/69 Pulse Oximetry 100 100 Oxygen Delivery 03/06/25 12:01 03/06/25 12:06 03/06/25 12:09 Temperature Pulse Rate 97 94 Blood Pressure 128/91 H 122/78 Pulse Oximetry 99 100 Oxygen Delivery 03/06/25 12:11 03/06/25 12:14 03/06/25 12:16 Temperature Pulse Rate 94 88 Blood Pressure 126/66 125/67 Pulse Oximetry 100 100 Oxygen Delivery 03/06/25 12:18 03/06/25 12:21 03/06/25 12:24 Temperature Pulse Rate 91 89 92 Blood Pressure 116/63 120/65 119/63 Pulse Oximetry 100 Oxygen Delivery 03/06/25 12:26 03/06/25 12:28 03/06/25 12:30 Temperature Pulse Rate 102 H 94 Blood Pressure 92/65 L 114/67 Pulse Oximetry 100 Oxygen Delivery 03/06/25 12:31 03/06/25 12:33 03/06/25 12:36 Temperature Pulse Rate 96 90 Blood Pressure 104/63 118/60 Pulse Oximetry 100 100 Oxygen Delivery 03/06/25 12:39 03/06/25 12:41 03/06/25 12:42 Temperature Pulse Rate 92 96 Blood Pressure 118/62 117/65 Pulse Oximetry 99 Oxygen Delivery 03/06/25 12:45 03/06/25 12:46 03/06/25 12:48 Temperature Pulse Rate 85 92 Blood Pressure 115/66 120/71 Pulse Oximetry 100 Oxygen Delivery 03/06/25 12:51 03/06/25 12:55 03/06/25 13:01 Temperature Pulse Rate 96 98 Blood Pressure 120/65 127/74 Pulse Oximetry 100 99 100 Oxygen Delivery 03/06/25 13:15 03/06/25 13:30 03/06/25 13:45 Temperature Pulse Rate 85 101 H 95 Blood Pressure 110/58 L 107/62 113/66 Pulse Oximetry Oxygen Delivery 03/06/25 14:00 03/06/25 14:15 03/06/25 14:30 Temperature Pulse Rate 91 102 H 95 Blood Pressure 123/62 108/61 104/58 L Pulse Oximetry Oxygen Delivery 03/06/25 14:45 03/06/25 15:00 03/06/25 15:30 Temperature Pulse Rate 89 84 79 Blood Pressure 103/55 L 106/50 L 101/54 L Pulse Oximetry Oxygen Delivery 03/06/25 15:45 03/06/25 16:00 03/06/25 16:02 Temperature 98.3 F Pulse Rate 96 90 Blood Pressure 111/65 116/72 Pulse Oximetry Oxygen Delivery 03/06/25 16:07 03/06/25 16:12 03/06/25 16:15 Temperature Pulse Rate 83 Blood Pressure 115/77 Pulse Oximetry 98 100 Oxygen Delivery 03/06/25 16:17 03/06/25 16:22 03/06/25 16:27 Temperature Pulse Rate Blood Pressure Pulse Oximetry 100 100 98 Oxygen Delivery 03/06/25 16:30 03/06/25 16:32 03/06/25 16:37 Temperature Pulse Rate 92 Blood Pressure 112/70 Pulse Oximetry 98 97 Oxygen Delivery 03/06/25 16:42 03/06/25 16:45 03/06/25 16:47 Temperature Pulse Rate 100 Blood Pressure 117/61 Pulse Oximetry 98 98 Oxygen Delivery 03/06/25 16:52 03/06/25 16:57 03/06/25 17:00 Temperature Pulse Rate 94 Blood Pressure 118/69 Pulse Oximetry 98 97 Oxygen Delivery 03/06/25 17:02 03/06/25 17:07 03/06/25 17:12 Temperature Pulse Rate Blood Pressure Pulse Oximetry 98 98 98 Oxygen Delivery 03/06/25 17:15 03/06/25 17:17 03/06/25 17:22 Temperature Pulse Rate 89 Blood Pressure 112/71 Pulse Oximetry 99 98 Oxygen Delivery 03/06/25 17:27 03/06/25 17:30 03/06/25 17:32 Temperature Pulse Rate 91 Blood Pressure 111/77 Pulse Oximetry 98 99 Oxygen Delivery 03/06/25 17:37 03/06/25 17:42 03/06/25 17:45 Temperature Pulse Rate 130 H Blood Pressure 120/79 Pulse Oximetry 98 98 Oxygen Delivery 03/06/25 17:47 03/06/25 17:52 03/06/25 17:57 Temperature Pulse Rate Blood Pressure Pulse Oximetry 100 97 97 Oxygen Delivery 03/06/25 18:00 03/06/25 18:02 03/06/25 18:07 Temperature Pulse Rate 95 Blood Pressure 110/66 Pulse Oximetry 97 98 Oxygen Delivery 03/06/25 18:12 03/06/25 18:15 03/06/25 18:17 Temperature Pulse Rate 98 Blood Pressure 112/68 Pulse Oximetry 98 98 Oxygen Delivery 03/06/25 18:22 03/06/25 18:27 03/06/25 18:31 Temperature Pulse Rate 85 Blood Pressure 94/56 L Pulse Oximetry 97 97 Oxygen Delivery 03/06/25 18:32 03/06/25 18:37 03/06/25 18:42 Temperature Pulse Rate Blood Pressure Pulse Oximetry 97 97 98 Oxygen Delivery 03/06/25 18:45 03/06/25 18:47 03/06/25 18:52 Temperature Pulse Rate 88 Blood Pressure 96/53 L Pulse Oximetry 96 97 Oxygen Delivery 03/06/25 18:57 03/06/25 19:00 03/06/25 19:02 Temperature Pulse Rate 89 Blood Pressure 97/55 L Pulse Oximetry 98 97 Oxygen Delivery 03/06/25 19:07 03/06/25 19:12 03/06/25 19:15 Temperature Pulse Rate 94 Blood Pressure 99/57 L Pulse Oximetry 98 97 Oxygen Delivery 03/06/25 19:17 03/06/25 19:19 03/06/25 19:22 Temperature 99 F Pulse Rate Blood Pressure Pulse Oximetry 99 100 Oxygen Delivery 03/06/25 19:27 03/06/25 19:30 03/06/25 19:32 Temperature Pulse Rate 83 Blood Pressure 113/64 Pulse Oximetry 100 100 Oxygen Delivery 03/06/25 19:37 03/06/25 19:42 03/06/25 19:45 Temperature Pulse Rate 89 Blood Pressure 117/76 Pulse Oximetry 100 100 Oxygen Delivery 03/06/25 19:47 03/06/25 19:52 03/06/25 19:57 Temperature Pulse Rate Blood Pressure Pulse Oximetry 100 100 100 Oxygen Delivery 03/06/25 20:00 03/06/25 20:02 03/06/25 20:07 Temperature Pulse Rate 83 Blood Pressure 114/71 Pulse Oximetry 100 100 Oxygen Delivery 03/06/25 20:12 03/06/25 20:15 03/06/25 20:17 Temperature Pulse Rate 90 Blood Pressure 111/78 Pulse Oximetry 100 100 Oxygen Delivery 03/06/25 20:22 03/06/25 20:27 03/06/25 20:29 Temperature Pulse Rate Blood Pressure Pulse Oximetry 100 100 100 Oxygen Delivery 03/06/25 20:30 03/06/25 20:34 03/06/25 20:39 Temperature Pulse Rate 82 Blood Pressure 115/94 H Pulse Oximetry 100 100 Oxygen Delivery 03/06/25 20:44 03/06/25 20:45 03/06/25 20:49 Temperature Pulse Rate 83 Blood Pressure 108/69 Pulse Oximetry 100 100 Oxygen Delivery 03/06/25 20:54 03/06/25 20:59 08/20/25 21:00 Temperature Pulse Rate 99 Blood Pressure 110/70 Pulse Oximetry 100 100 Oxygen Delivery 03/06/25 21:04 03/06/25 21:09 03/06/25 21:12 Temperature Pulse Rate Blood Pressure Pulse Oximetry 100 100 100 Oxygen Delivery 03/06/25 21:15 03/06/25 21:17 03/06/25 21:22 Temperature Pulse Rate 94 Blood Pressure 109/71 Pulse Oximetry 100 100 Oxygen Delivery 03/06/25 21:27 03/06/25 21:30 03/06/25 21:32 Temperature Pulse Rate 92 Blood Pressure 112/70 Pulse Oximetry 100 100 Oxygen Delivery 03/06/25 21:37 03/06/25 21:42 03/06/25 21:45 Temperature Pulse Rate 105 H Blood Pressure 117/80 Pulse Oximetry 100 100 Oxygen Delivery 03/06/25 21:47 03/06/25 21:52 03/06/25 21:57 Temperature Pulse Rate Blood Pressure Pulse Oximetry 100 100 100 Oxygen Delivery 03/06/25 22:00 03/06/25 22:02 03/06/25 22:07 Temperature Pulse Rate 105 H Blood Pressure 93/60 L Pulse Oximetry 100 100 Oxygen Delivery 03/06/25 22:10 03/06/25 22:15 03/06/25 22:20 Temperature Pulse Rate 104 H Blood Pressure 106/65 Pulse Oximetry 100 100 100 Oxygen Delivery 03/06/25 22:25 03/06/25 22:30 03/06/25 22:35 Temperature Pulse Rate Blood Pressure Pulse Oximetry 100 100 100 Oxygen Delivery 03/06/25 22:40 03/06/25 22:45 03/06/25 22:50 Temperature Pulse Rate Blood Pressure Pulse Oximetry 100 100 100 Oxygen Delivery 03/06/25 22:55 03/06/25 23:00 03/06/25 23:05 Temperature Pulse Rate Blood Pressure Pulse Oximetry 99 100 100 Oxygen Delivery 03/06/25 23:10 03/06/25 23:16 03/06/25 23:17 Temperature Pulse Rate Blood Pressure Pulse Oximetry 100 100 100 Oxygen Delivery 03/06/25 23:17 03/06/25 23:20 03/06/25 23:25 Temperature Pulse Rate Blood Pressure Pulse Oximetry 95 96 98 Oxygen Delivery 03/06/25 23:30 03/06/25 23:35 03/06/25 23:40 Temperature Pulse Rate Blood Pressure Pulse Oximetry 98 100 99 Oxygen Delivery 03/06/25 23:45 03/06/25 23:50 03/06/25 23:55 Temperature Pulse Rate Blood Pressure Pulse Oximetry 99 98 100 Oxygen Delivery 03/07/25 00:00 03/07/25 00:12 Temperature Pulse Rate 99 Blood Pressure 121/52 L Pulse Oximetry 100 Oxygen Delivery H&P: Results Labs Labs: Short CBC 03/06/25 Range/Units 08:57 WBC 15.0 H (4.5-10.0) K/mm3 Hgb 9.0 L (12.0-15.0) g/dL Hct 28.7 L (37.0-47.0) % Plt Count 335 (150-375) k/mm3
[2025-03-07] MEDS: OXYTOCIN 30 UNITS/NS 500 ML 30 UNITS/500 ML BAG 125 UNITS IV CONT (00:30)
[2025-03-07] MEDS: WITCH HAZEL 40 PADS 1 PAD TOPICAL (02:30)
[2025-03-07] MEDS: BENZOCAINE 20% AER SPR (*SP) 56 GM CAN 1 SPRAY TOPICAL (02:30)
[2025-03-07] MEDS: ACETAMINOPHEN 325 MG TABLET 650 MG PO ×3 (02:30→22:50)
[2025-03-07] MEDS: IBUPROFEN 600 MG TABLET PO ×3 (02:30→15:31)
--- NOTE | 2025-03-07 03:40 | OBPPTRN ---
Patient transferred to post room #284. Support person present. Oriented to unit, room, information board, rooming in, admission packet and security measures. Patient verbalizes understanding.
--- NOTE | 2025-03-07 07:03 | P.PNOB_ITS ---
OB - PN: Subj Subjective Date/time seen: 03/07/25 07:03 Patient comments: no complaints, pain well controlled and tolerating diet [place] baby status: doing well OB - PN: Obj Data Labs 03/06/25 08:57 Labs: Laboratory Results - last 24 hr 03/06/25 03/06/25 08:57 08:58 WBC 15.0 H RBC 3.45 L Hgb 9.0 L Hct 28.7 L MCV 83.2 MCH 26.1 MCHC 31.4 L RDW 15.6 H Plt Count 335 MPV 8.8 Immature Gran % (Auto) 1.9 H Neut % (Auto) 74.9 H Lymph % (Auto) 16.4 L [place] % (Auto) 5.9 Eos % (Auto) 0.6 Baso % (Auto) 0.3 Lymph # (Auto) 2.46 [place] # (Auto) 0.9 H Eos # (Auto) 0.1 Baso # (Auto) 0.0 Abs Immat Gran (auto) 0.28 H Absolute Neuts (auto) 11.3 H Absolute Nucleated RBC 0.000 Nucleated RBC % 0.0 Syphilis IgG/IgM Ab Non-reactive HIV 1&2 Ab/P24 Ag 4thGn Negative Blood Type O Negative Antibody Screen Positive Antibody Identification Passive Due to RH Imm Glob Antigen Identification TNP TONY, IgG Interpret Not Performed TONY, Poly Interpret Negative TONY, Complement Interp Not Performed OB - PN A/P Assessment and Plan (1) Term : Code(s): Z34.90 - Encounter for supervision of normal , unspecified, unspecified trimester Status: Acute Plan routine care Time Spent With Patient Time: Total time spent is greater than 50% in coordination of care (as documented) at patient's floor/unit and/or counseling patient: Review of Systems 2 Review of Systems: As reviewed above in HPI Exam 2 Const: General: cooperative, healthy appearing, comfortable, well groomed and average body habitus Orientation/consciousness: oriented to person, oriented to place and oriented to time HENMT: Head: normal to inspection Resp: Effort & Inspection: normal respiratory effort Cardio: Rate: regular rate Rhythm: regular rhythm Heart sounds: S1 normal heart sound present and S2 normal heart sound present GI: Inspection: normal to inspection (Gravid soft uterus) Auscultation: n ormal bowel sounds : External Female Exam: normal external appearance Speculum Exam - Vagina: normal appearance of the vagina Speculum Exam - Cervix: normal appearance of the cervix (Cervix 2 )
[2025-03-07] MEDS: DOCUSATE SODIUM 100 MG CAPSULE PO ×2 (08:48→15:32)
[2025-03-07] MEDS: MULTIVIT/MIN/PREN/FOL AC/IRON TABLET 1 TAB PO (08:48)
--- NOTE | 2025-03-07 13:32 | WPDANLDPN2 ---
Anes-Prog Note L&D Date/Time: 03/07/25 13:32 Neuro status: Neuro function grossly intact. Cardiovascular status: normal Respiratory status: normal Airway patency: baseline Mental status: baseline Post-Op hydration status: normal Vital Signs: Last Vital Signs Temp 36.9 C 03/07/25 12:04 Pulse 85 03/07/25 12:04 Resp 16 03/07/25 12:04 BP 117/68 03/07/25 12:04 Pulse Ox 100 03/07/25 12:04 O2 Del Method Room Air 03/06/25 09:08 Pain score (VAS): 0 I/O: Intake & Output 03/06/25 03/07/25 03/07/25 23:59 07:59 15:59 Intake Total 995.8 Output Total 50 Balance 995.8 -50 Post-procedural complaints: none Patient feedback: Patient satisfied with anesthetic care.
--- NOTE | 2025-03-07 14:48 | PC.NURSE ---
1030. Observed mother latching to the right breast in cross cradle position. was able to maintain an appropriate latch. Mother declines nipple pain/discomfort throughout feeding. Encouraged mother to keep awake and nursing at the breast for as long as baby desires. Mother taught to listen for swallowing during feedings. Mother verbalizes she is able to independently latch with appropriate positioning and alignment. She denies any nipple discomfort and is responsively . is currently meeting outcomes for weight, output, jaundice, blood sugar and feeding frequencies of 8-12 times in 24 hours. Mother declines any additional assistance or education at this time. Mother is encouraged to call for assistance if her infant doesn?t latch, pain with latching, questions or concerns. Mother voiced understanding of information shared along with the mom/baby guide for an additional resource. Reported to the Primary RN.
[2025-03-08] MEDS: IBUPROFEN 600 MG TABLET PO ×2 (00:40→10:00)
[2025-03-08 04:15] VITALS: BP 98/53; PULSE 88; RESP 16; TEMP 36.4; O2SAT 98
[2025-03-08 05:11] LABS: Hematocrit 24.8 % (37.0-47.0); Hemoglobin 7.7 g/dL (12.0-15.0)
--- NOTE | 2025-03-08 07:09 | P.PNOB_ITS ---
OB - PN: Subj Subjective Date/time seen: 03/08/25 07:09 Patient comments: no complaints, pain well controlled and tolerating diet [place] baby status: doing well OB - PN: Obj Data Labs 03/08/25 04:07 Labs: Laboratory Results - last 24 hr 03/08/25 04:07 Hgb 7.7 L Hct 24.8 L OB - PN A/P Time Spent With Patient Time: Total time spent is greater than 50% in coordination of care (as documented) at patient's floor/unit and/or counseling patient: Review of Systems 2 Review of Systems: As reviewed above in HPI Exam 2 Const: General: cooperative, healthy appearing, comfortable, well groomed and average body habitus Orientation/consciousness: oriented to person, oriented to place and oriented to time HENMT: Head: normal to inspection Resp: Effort & Inspection: normal respiratory effort Cardio: Rate: regular rate Rhythm: regular rhythm Heart sounds: S1 normal heart sound present and S2 normal heart sound present GI: Inspection: normal to inspection (Gravid soft uterus) Auscultation: n ormal bowel sounds : External Female Exam: normal external appearance Speculum Exam - Vagina: normal appearance of the vagina Speculum Exam - Cervix: normal appearance of the cervix (Cervix 2 )
[2025-03-08 08:00] VITALS: BP 116/72; PULSE 84; RESP 16; TEMP 36.8; O2SAT 99
[2025-03-08] MEDS: MULTIVIT/MIN/PREN/FOL AC/IRON TABLET 1 TAB PO (09:59)
[2025-03-08] MEDS: DOCUSATE SODIUM 100 MG CAPSULE PO (09:59)
[2025-03-08] MEDS: TETANUS,DIPHTHERIA,AC PERTUSSIS ADULT (0.5 ML) BOOSTRIX IM (10:00)
[2025-03-11 10:12] VITALS: BP 108/78; PULSE 100; RESP 16; TEMP 36.6; O2SAT 100
== END 2025-03-08 12:00 | disposition home or self-care (01) | DRG 560 ==
LOC: ANHLDR 03-07 00:15 → ANHOB2 03-07 03:34
PROVIDERS: Admitting Provider Obstetrics & Gynecology; PCP Nurse Practitioner Family; Visit Provider Obstetrics & Gynecology
DX: O69.81X0 Labor and delivery complicated by cord around neck, without compression, not applicable or unspecified (principal); Z37.0 Single live birth; Z3A.39 39 weeks gestation of pregnancy; O70.1 Second degree perineal laceration during delivery; O26.893 Other specified pregnancy related conditions, third trimester; Z67.91 Unspecified blood type, Rh negative
CPT/HCPCS: 36415; 85014; 85018; 85025; 86593; 86703; 86850; 86880; 86900; 86901; 86902; 90715; A9270; G0432; J2405; J2590; J2795; J7120

== ENCOUNTER 2025-05-04 17:57 | Emergency (ER) | payer OTHER, SELFPAY ==
--- OUTSIDE RECORDS SUMMARY | 2025-05-04 18:01 | XMS_ITS | Clinical Summary ---
Author Organization 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
[2025-05-04 18:02] VITALS: BP 142/87; PULSE 98; RESP 16; TEMP 36.7; O2SAT 100
--- NOTE | 2025-05-04 18:05 | ED_ITS ---
HPI - URI/Sore Throat General Chief Complaint: Upper Respiratory Infection Stated Complaint: chest congestion/sore throat Time Seen by Provider: 05/04/25 18:05 Source: patient, RN notes reviewed and old records reviewed Mode of arrival: ambulatory Limitations: no limitations History of Present Illness HPI Narrative: 20-year-old female presents to the [facility] with 3-4 day history of congestion, sore throat. Denies fevers, cough. Patient states that she has taken Tylenol, no other medications because she is currently . Requesting a work note Related Data Home Medications ?Medication ?Instructions ?Recorded ?Confirmed ?Last Taken ?Type No Home Medications 05/04/25 Unknown H istory Allergies Allergy/AdvReac Type Severity Reaction Status Date / Time latex Allergy Mild rash Verified 05/04/25 18:07 Sulfa (Sulfonamide Allergy Mild rash Verified 05/04/25 18:07 Antibiotics) Review of Systems Review of Systems: All systems reviewed & are unremarkable except as noted in HPI and below Constitutional: Constitutional: Reports no additional constitutional complaints ENT: Reports as per HPI Cardiovascular: Cardiovascular: Reports no additional cardiovascular complaints, Denies chest pain and Denies dyspnea Respiratory: Respiratory: Reports no additional respiratory complaints, Denies chest congestion, Denies cough and Denies dyspnea Musculoskeletal: Musculoskeletal: Reports no additional musculoskeletal complaints Integumentary/Breasts: Skin/Breast: Reports system reviewed and no additional complaints, except as docu PMFSH Past Medical History Medical History Anxiety Eczema Asthma Surgical History Surgical History H/O wrist surgery Bilateral tendon removal Family History Family History Mother Endometriosis Father Diabetes mellitus Asthma [id number] deficiency High cholesterol Sibling Asthma Sibling No problems noted. Grandparent Heart attack Social History Social History Smoking status: Never smoker Alcohol intake: never Substance use: never Do You Feel Safe in your Home?: Yes Lack of Transportation: No Lack of Food: Never True Current Housing: I Have Housing Concerned About Future Housing: No Difficulty Paying Gas/Electric Bills: No Difficulty Paying for Meds: No Currently Unemployed: No Education: High School Diploma/GED Difficulty w/ Childcare or Family Care: No Living arrangements: with family Occupation/Education: occupation Gender identity (if verbalized by the patient): Female Sexual Orientation (if Verbalized by the Patient): Straight or Heterosexual Spiritual care concerns: No Comments At the time of my signature, I reviewed and agree with the nursing past medical, surgical, social, and family history. There is no relevant family history pertinent to the patient complaint. Exam Const: General: cooperative, healthy appearing, comfortable, no acute distress, well developed, alert and well nourished Nutritional Appearance: well nourished Orientation/consciousness: patient oriented x3 Limitations: no limitations HENMT: Head: normal to inspection Ears: hearing grossly normal bilaterally, external ears normal, TM's normal bilaterally, EAC's normal, mastoids normal and no periauricular adenopathy Mouth: Yes Normal oral and palatal mucosa present, Yes lip normal, Yes tongue normal and Yes moist mucous membranes abnormal Throat: posterior oropharynx normal, uvula midline and no uvular edema Eyes: General: appearance normal, both eyes and all related structures Alignment and Position: alignment normal Neck: Neck: normal visual inspection, full ROM, no lymphadenopathy and no meningeal signs Chest: Chest palpation & inspection: normal inspection of the chest Resp: Effort & Inspection: normal respiratory effort and able to speak in complete sentences Auscultation: clear to auscultation bilaterally, no crackles, no rales, no rhonchi and no wheezes Cardio: Rate: regular rate Skin: General skin exam: normal color and no rashes or lesions noted Neuro: General: patient oriented x3, gait normal, moves all extremities and no meningeal signs Cognition (Neuro): normal cognition Speech: normal speech Gait exam (Neuro): Normal gait present Extrem: General: normal to inspection, full ROM, capillary refill normal and normal gait Psych: Appearance: grossly normal and well kempt Mental Status: mental status grossly normal Speech and movement: Normal speech and movement present and Clear speech present Affect: normal affect Attitude: cooperative Course Course Level of Care: Express Care Visit Vital Signs Vital signs: Vital Signs Temperature 98.0 F 05/04/25 18:02 Pulse Rate 98 05/04/25 18:02 Respiratory Rate 16 05/04/25 18:02 Blood Pressure 142/87 H 10/18/25 18:02 Pulse Oximetry 100 05/04/25 18:02 Oxygen Delivery Room Air 05/04/25 18:02 Temperature 98.0 F 05/04/25 18:02 Pulse Rate 98 05/04/25 18:02 Respiratory Rate 16 05/04/25 18:02 Blood Pressure 142/87 H 05/04/25 18:02 Pulse Oximetry 100 05/04/25 18:02 Oxygen Delivery Room Air 05/04/25 18:02 Reviewed MDM - URI/Sore Throat MDM Narrative Medical decision making narrative: Patient sitting in exam room. Patient is nontoxic, vitals stable. Patient presents with 3-4 day history of URI symptoms. Flu, COVID, strep were negative, will culture for strep. Patient's exam most consistent with viral URI. Patient appropriate for outpatient treatment with close follow-up Discharge instructions reviewed with patient, as well as provided in writing per nursing staff. The instructions also include specific and strict return/GO TO THE ER as well as f/u information. All questions have been answered, and the patient deny any further questions with discharge and discharge plan. Some parts of this dictation were generated by voice recognition software and may contain typographical and/or grammatical inaccuracies. Differential Diagnosis Differential diagnosis: Likely upper respiratory infection, otitis media, sinusitis, viral infection, bronchitis, influenza and pharyngitis Lab Data Labs: Lab Results 05/04/25 Range/Units 18:08 POC Influenza A Ag Negative (Negative) POC Influenza B Ag Negative (Negative) POC SARS CoV-2 Ag Negative (Negative) POC Grp A Strep Screen Negative (Negative) Reviewed Critical Care Time Critical Care Time Critical Care Time: No Discharge Plan Discharge Clinical Impression: Upper respiratory infection Qualifiers: URI type: unspecified viral URI Qualified Code(s): J06.9 - Acute upper respiratory infection, unspecified Patient Disposition: Home Condition: Stable Instructions: Antibiotic Form Additional Instructions: YOUR RAPID STREP SWAB WAS NEGATIVE TODAY AT [facility]. A THROAT CULTURE WILL BE SENT TO THE LABORATORY FOR FURTHER TESTING. IF THE TEST IS POSITIVE, YOU WILL RECEIVE A PHONE CALL WITHIN 48 HOURS AND AN APPROPRIATE ANTIBIOTIC WILL BE INITIATED AT THAT TIME. YOUR RAPID COVID TEST WERE NEGATIVE YOUR RAPID FLU TEST WAS NEGATIVE YOUR SYMPTOMS ARE LIKELY DUE TO A VIRAL ILLNESS, WHICH IS NOT TREATED WITH ANTIBIOTICS. TYPICALLY VIRAL INFECTIONS LAST 7-10 DAYS, CAN LINGER FOR COUPLE OF WEEKS. IT IS VERY IMPORTANT TO TREAT YOUR SYMPTOMS. DRINK PLENTY OF WATER, GATORADE, PEDIALYTE, ICE POPS OR JELL-O. -ALTERNATE TYLENOL AND MOTRIN PER PACKAGE DIRECTIONS FOR FEVER OR PAIN. YOU CAN ALTERNATE EVERY 4 HOURS -ANTIHISTAMINE MEDICATION SUCH ZYRTEC/CLARITIN DURING THE DAY CAN HELP IMPROVE SYMPTOMS. -DOING DAILY NASAL IRRIGATIONS CAN HELP RELIEVE PRESSURE YOUR SINUSES. THINGS L TANYA A NETI POT -USE FLONASE TWICE A DAY FOR 5 DAYS THEN DAILY TO HELP REDUCE THE INFLAMMATION AND DRY UP YOUR SINUSES. -YOU CAN ALSO USE MUCINEX. BE SURE TO DRINK PLENTY OF WATER WITH THIS MEDICATIO N AT LEAST 8 OUNCES WITH EVERY DOSE AND IT IS IMPORTANT TO DRINK 8 TO 10 GLASSES OF WATER PER DAY. WATER IS A NATURAL DECONGESTANT -EAT AND DRINK THINGS THAT ARE EASY TO SWALLOW, LIKE TEA OR SOUP, OR POPSICLES. -ORAL RINSES SUCH : SALT WATER GARGLES AND/OR MAY USE TOPICAL ANESTHETIC (EG. CHLORASEPTIC SPRAY) OR LOZENGES TO RELIEVE DRYNESS OR THROAT PAIN). -FREQUENT HAND WASHING OR HAND PASTE PLANT SUPERVISOR IS ONE OF THE BEST WAYS TO PREVENT SPREAD OF INFECTION. -USING A VAPORIZER OR HUMIDIFIER AT NIGHT WILL ALSO HELP THIN SECRETIONS AND HELP WITH COUGHING UP PHLEGM. -FOLLOW UP WITH PRIMARY CARE PROVIDER IN 7-10 DAYS IF CONDITION IS NOT IMPROVING - FOR NEW OR WORSENING SYMPTOMS GO DIRECTLY TO THE NEAREST ER YOU CAN TALK WITH PHARMACY STAFF IN REGARDS TO SAFE MEDICATIONS. Safe Medications:? * Acetaminophen (Tylenol) * Ibuprofen (Advil, Motrin) * Decongestants (pseudoephedrine, phenylephrine) USE SUDAFED WITH CAUTION, IT CAN DECREASE THE AMOUNT OF BREAST MILK * Antihistamines (loratadine, cetirizine) * Cough suppressants (dextromethorphan) Patient Language: Slovak Prescriptions: No Action No Home Medications Follow-up/Referrals: Sagastume,Minnie Sanchez APN [Primary Care Provider, Unknown] - 2 Weeks Clinical Impression: Upper respiratory infection Stand Alone Forms: Work/School Release IP Time of Disposition: 18:36
[2025-05-04 18:20] LABS: EDSTREPNEGPOS1 Negative (Negative)
[2025-05-04 18:27] LABS: EDCOVIDSCREEN Negative (Negative); EDINFLUASCREEN Negative (Negative); EDINFLUBSCREEN Negative (Negative)
== END 2025-05-04 18:41 | disposition home or self-care (01) ==
PROVIDERS: Emergency Provider Nurse Practitioner; PCP Nurse Practitioner Family
DX: J06.9 Acute upper respiratory infection, unspecified (principal); Z20.822 Contact with and (suspected) exposure to COVID-19; J45.909 Unspecified asthma, uncomplicated
CPT/HCPCS: 87081; 87426; 87804; 87880; 99213; G0463